=== PATIENT | female | born 1985 | race Caucasian/White ===

== ENCOUNTER 2020-03-01 13:33 | Outpatient (REF) | payer MEDICAID, SELFPAY ==
[2020-03-01 15:00] LABS: MANUAL DIFF FLAG NO
[2020-03-01 15:04] LABS: Basophils Percent Auto 0.3 % (0-2); Eosinophils Absolute Auto 0.1 X10*3/uL (0.0-0.4); Eosinophils Percent Auto 4.3 % (0-4); Hematocrit 38.3 % (37-47); Hemoglobin 12.6 g/dl (12.0-16.0); Lymphocytes Absolute Auto 1.6 X10*3/uL (1.2-4.9); Lymphocytes Percent Auto 53.8 % (20-40); Mean Corpuscular HGB Conc 32.9 g/dl (31.0-35.0); Mean Corpuscular Hemoglobin 29.9 pg (27.0-33.0); Mean Platelet Volume 12.4 fL (9.4-12.3); Monocytes Absolute Auto 0.2 X10*3/uL (0.1-1.2); Monocytes Percent Auto 7.3 % (2-11); Neutrophils Percent Auto 34.3 % (45-73); Platelet Count 117 X10*3/uL (160-400); Red Blood Count 4.21 X10*6/uL (4.20-5.50); Red Cell Distribution Width 13.2 % (11.0-16.0)
[2020-03-01 15:55] LABS: HCG Quantitative < 2 mIU/mL; TSH reflex Free T4 0.99 mIU/mL (0.32-4.0)
[2020-03-01 15:58] LABS: Erythrocyte Sedimentation Rate 14 MM/HR (0-20)
[2020-03-01 15:59] LABS: Alanine Aminotransferase 162 U/L (0-31); Albumin Level 3.8 g/dL (3.5-5.0); Alkaline Phosphatase 117 U/L (39-117); Anion Gap 12 (12-20); Aspartate Amino Transferase 187 U/L (5-31); Bilirubin Total 0.6 mg/dL (0.0-1.0); Blood Urea Nitrogen 7 mg/dL (9-16); C Reactive Protein 0.21 mg/dL (< or = 0.50); Calcium 8.6 mg/dL (8.4-10.2); Carbon Dioxide 24 mmol/L (22-29); Chloride 106 mmol/L (96-108); Estimated Glomerular Filt Rate > 60; Glucose Random 114 mg/dL (60-115); Potassium 4.3 mmol/l (3.3-5.1); Sodium 138 mmol/L (135-145); Total Protein 7.7 g/dL (6.5-8.0)
[2020-03-01 16:09] LABS: Lactate Dehydrogenase 192 U/L (122-220)
[2020-03-03 09:38] LABS: SARS COV2 IgG Negative (Negative)
[2020-03-04 08:04] LABS: HIV AB/AG Nonreactive (Nonreactive); HIV Num 1 0.06 S/CO (0.00-0.99)
== END 2020-03-01 13:34 | disposition home or self-care (01) ==
LOC: HO.LAB 13:33
PROVIDERS: PCP Family Medicine; Visit Provider Family Medicine
DX: R61 Generalized hyperhidrosis (principal); Z01.84 Encounter for antibody response examination
CPT/HCPCS: 36415; 80053; 83615; 84443; 84702; 85025; 85652; 86140; 86481; 86769; 87040; 87389

== ENCOUNTER → 2020-05-01 10:47 | Outpatient (BNVA) | payer MEDICAID, SELFPAY | PROVIDERS: PCP Family Medicine; Referring Provider Internal Medicine; Visit Provider Surgery | DX: K43.9 Ventral hernia without obstruction or gangrene (principal); B19.20 Unspecified viral hepatitis C without hepatic coma; F19.11 Other psychoactive substance abuse, in remission | CPT/HCPCS: 99212 ==

== ENCOUNTER 2020-05-14 08:41 | Day surgery (SDC) | payer MEDICAID, SELFPAY ==
[2020-05-08 13:30] VITALS: BMI 34.2
--- NOTE | 2020-05-13 11:08 | HO.ANESPROP2 ---
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 If so, by whom?: No Advance Directives Information Provided: No Recently lost weight without trying: No Meds Allergies Allergy/AdvReac Type Severity Reaction Status Date / Time No Known Allergies Allergy Verified 05/14/20 08:47 Home Medications Medication Instructions Recorded Confirmed Type clonazepam 1 mg tablet 1 mg PO TID 05/01/20 05/08/20 History gabapentin 800 mg tablet 800 mg PO TID 05/01/20 05/08/20 History methadone 10 mg/5 mL oral solution 60 mg PO DAILY ml 05/01/20 05/08/20 History sertraline 100 mg tablet 150 mg PO DAILY tab 05/01/20 05/08/20 History Exam Exam Date and Time: May 13, 2020 1108 Height,Weight and Vital Signs: Height 5 ft 2 in Weight 84.822 kg Pertinent Lab Results Pertinent Lab Results: Laboratory Tests 03/01/20 03/01/20 14:25 14:25 WBC 3.0 L Hgb 12.6 Hct 38.3 Plt Count 117 L Sodium 138 Potassium 4.3 Chloride 106 Carbon Dioxide 24 BUN 7 L Creatinine 0.75 Laboratory Tests 03/01/20 14:25 Total Bilirubin 0.6 AST 187 H ALT 162 H Alkaline Phosphatase 117 Assessment and Plan Assessment Anesthesia Assessment: Chart Reviewed Documented by User: Susy Patiño 05/14/20 10:17 PMF Past Medical History Medical History Anxiety and depression Hepatitis C History of intravenous drug abuse Lab test negative for COVID-19 virus Lab test positive for detection of COVID-19 virus Obesity Smoker Supraumbilical hernia Surgical History Surgical History History of section (~2006) History of umbilical hernia repair (~09/29/17) Social History Social History 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 If so, by whom?: No Advance Directives Information Provided: No Recently lost weight without trying: No Meds Allergies Allergy/AdvReac Type Severity Reaction Status Date / Time No Known Allergies Allergy Verified 05/14/20 08:47 Home Medications Medication Instructions Recorded Confirmed Type clonazepam 1 mg tablet 1 mg PO TID 05/01/20 05/08/20 History gabapentin 800 mg tablet 800 mg PO TID 05/01/20 05/08/20 History methadone 10 mg/5 mL oral solution 60 mg PO DAILY ml 05/01/20 05/08/20 History sertraline 100 mg tablet 150 mg PO DAILY tab 05/01/20 05/08/20 History Exam Airway Mallampati Class: II TM Dist: >3cm Neck ROM: Full Assessment and Plan Assessment Anesthesia Assessment: Anesthesia Plan Discussed, Smoking Cess. Discussed and Chart Reviewed Final Anesthetic Review NPO: Yes ASA Class: II Final Preanesthetic Review: No Changes in Pt Med Stat, Meds/Allgs Chart Reviewed, Consent Obtained/Reviewed and Anes Risks/Benef Reviewed Patient Risk: Intermediate Procedure Risk: Low Assessment/Block/Sedation in SS: Assess/Block/Sedation-SS Anesthetic Plan Anesthetic Plan: GA Disposition: Standard PACU
[2020-05-14 08:57] VITALS: BP 125/71; PULSE 75; RESP 16; TEMP 36.6; O2SAT 97
[2020-05-14] MEDS: Lactated Ringers 1,000 ML 100 ML IVCONT (09:16)
[2020-05-14] MEDS: ceFAZolin Sodium/Dextrose,Iso 2 GM/50 ML PIGGYBACK IV (09:16)
[2020-05-14 09:29] LABS: UPreg QC Valid YES; Urine Pregnancy NEGATIVE (NEGATIVE)
--- NOTE | 2020-05-14 09:49 | MHC.SHP ---
Pre-Procedural Eval Section B Chief Complaint: Supraumbilical Hernia Allergies: Allergies Allergy/AdvReac Type Severity Reaction Status Date / Time No Known Allergies Allergy Verified 05/14/20 08:47 Plan Patient has been examined and remains a candidate for the planned procedure
[2020-05-14 10:35] VITALS: BP 93/61; PULSE 67; RESP 16; TEMP 36.3; O2SAT 95
[2020-05-14 10:40] VITALS: BP 104/62; PULSE 68; RESP 16; O2SAT 95
[2020-05-14 10:45] VITALS: BP 102/61; PULSE 67; RESP 16; O2SAT 95
[2020-05-14 10:50] VITALS: BP 100/63; PULSE 74; RESP 16; O2SAT 94
[2020-05-14 11:05] VITALS: BP 106/64; PULSE 73; RESP 16; O2SAT 97
--- NOTE | 2020-05-14 11:09 | OP_ITS ---
SURGEON: Leander Leija MD INDICATIONS: The patient is a 34-year-old female with note of reducible supraumbilical mass. This had been bothering her. She was seen in the office. This appeared to be consistent with a supraumbilical hernia. Review of her history showed she had an umbilical hernia repair done in 2018, but a new hernia appeared to be separate from this. She understood the technique of repair with possible mesh placement. She was aware of the risks, benefits, and alternatives. PREOPERATIVE DIAGNOSIS: Supraumbilical hernia. POSTOPERATIVE DIAGNOSIS: Supraumbilical hernia. PROCEDURE PERFORMED: Repair of supraumbilical hernia. ESTIMATED BLOOD LOSS: COMPLICATIONS: ANESTHESIA: ASSISTANTS: Preeti Carty PA-C. SPECIMENS: DESCRIPTION OF PROCEDURE: The patient was brought to the operating room and placed supine on the table under general anesthesia via laryngeal mask airway. The area of the hernia was prepped and draped in usual sterile fashion. A surgical time-out was done. The patient received cefazolin 2 g IV preoperatively. I infiltrated the planned line of incision using lidocaine 1%. I made a short longitudinal incision using blade #15. This was carried down to full-thickness skin and subcutaneous fat using electrocautery. We proceeded to then expose the anterior fascia. We then proceeded to continue to dissect through the subcutaneous fat until I was able to see a hernia. I sharply dissected the hernia off the rest of the subcutaneous fat down to the fascial layer using Metzenbaum scissors as well as electrocautery. I was able to clearly define the hernia after this dissection. We were able to reduce the hernia completely. The fascial defect was about 0.75 cm in diameter. In view of the very small size of this hernia, i decided not to use the mesh. I closed this with a [id number] Maxon 0 stitch. Made sure that there were no bowel loops under the fascial defect on indirect examination during closure. There were no other palpable hernias in the area. I then reapposed the subcutaneous layer with Dexon 3-0 interrupted sutures. Skin closure was achieved with Dexon 4-0 subcuticular running stitch. Steri-Strips and dressings were applied. The incision was infiltrated with Marcaine 0.5% for postop analgesia. The procedure was then completed. The patient tolerated the procedure well. There were no complications noted. Initial and final counts of sponges and instruments were correct. Estimated blood loss was minimal. The area of incision had been infiltrated with Marcaine 0.5% for postop analgesia. The patient was then extubated and was transferred to recovery room with stable vital signs. MD WILLIE Lopez/LALO / [id number] MTDD
--- NOTE | 2020-05-14 11:57 | HO.POSTANES ---
Post Anesthesia Evaluation Post Anesthesia Evaluation Vital Signs: Vital Signs Temp Pulse Resp BP Pulse Ox 05/14/20 11:05 97.3 F 73 16 106/64 97 05/14/20 10:50 74 16 100/63 94 05/14/20 10:45 67 16 102/61 95 05/14/20 10:40 68 16 104/62 95 05/14/20 10:35 97.3 F 67 16 93/61 95 05/14/20 08:57 97.8 F 75 16 125/71 97 Anesthesia: General LMA Mental Status: Awake Pain Control: Satisfactory Nausea/Vomiting: None Hydration: Adequate Anesthesia-Related Issues: No Anes. Related Issues
== END 2020-05-14 11:44 | disposition home or self-care (01) ==
PROVIDERS: Nurse Practitioner; PCP Family Medicine; Visit Provider Surgery
PROC: (CPT 49560; principal; 2020-05-14 10:00)
DX: K43.9 Ventral hernia without obstruction or gangrene (principal)
CPT/HCPCS: 49560; 81025; J0690; J1100; J2250; J2405; J3010

== ENCOUNTER 2020-08-14 16:05 | Outpatient (REF) | payer MEDICAID, SELFPAY ==
--- NOTE | ~2020-08-14 | XR_ITS ---
EXAMINATION: XR LUMBOSACRAL SPINE WITH OBLIQUES CLINICAL INFORMATION: Lumbago with sciatica. Right side. COMPARISON: None TECHNIQUE: AP, both oblique, and lateral views of the lumbar spine. Lateral view of the lumbosacral junction. FINDINGS: There is normal lumbar lordosis. The vertebral heights, alignment and disc heights are normal. There is no pars defect on oblique views. There is no lytic process. There is moderate stool seen in the colon without distention. The soft tissues are normal. XR/XR lumbar spine 4V min IMPRESSION: Unremarkable lumbar spine exam.
== END 2020-08-14 16:06 | disposition home or self-care (01) ==
LOC: HO.XRAY 16:05
PROVIDERS: PCP Internal Medicine; Visit Provider Family Medicine
DX: M54.41 Lumbago with sciatica, right side (principal)
CPT/HCPCS: 72110

== ENCOUNTER → 2020-11-04 12:24 | Outpatient (REF) | payer MEDICAID, SELFPAY ==
--- NOTE | 2020-11-04 12:34 | ECG_ITS ---
Test Reason : CHECK QT Blood Pressure : / mmHG Vent. Rate : 061 BPM Atrial Rate : 061 BPM P-R Int : 148 ms QRS Dur : 082 ms QT Int : 458 ms P-R-T Axes : 037 039 022 degrees QTc Int : 461 ms Normal sinus rhythm Nonspecific T wave abnormality Prolonged QT Abnormal ECG When compared with ECG of 07-JAN-2019 13:49, T wave inversion less evident in Anterolateral leads Referred By: Ara Haile Electronically Signed By:ALBERT RODRIGUEZ MD
== END ==
LOC: HO.CARD 12:24
PROVIDERS: PCP Internal Medicine; Visit Provider Family Medicine
DX: R94.31 Abnormal electrocardiogram [ECG] [EKG] (principal); Z79.891 Long term (current) use of opiate analgesic
CPT/HCPCS: 93005

== ENCOUNTER 2021-02-14 08:16 | Outpatient (REF) | payer OTHER, MEDICAID, SELFPAY ==
--- NOTE | ~2021-02-14 | MR_ITS ---
MR CERVICAL SPINE WITHOUT CONTRAST CLINICAL INFORMATION: Muscle spasm. COMPARISON: Cervical spine radiographs 12/06/2019. TECHNIQUE: MRI of the cervical spine was obtained using routine sequences without contrast. FINDINGS: Cervical alignment is normal. The vertebral body heights are maintained. The disc volumes are preserved. There is no bone marrow edema. There are no acute fractures. Craniocervical junction is unremarkable. Cervical arterial flow voids are maintained. There are no significant extraspinal soft tissue findings. Partially imaged intracranial compartment is unremarkable. C2-C3: Disc contour is normal. No central canal stenosis and no foraminal stenosis. C3-C4: Slight annular disc bulge. No central canal stenosis and no foraminal stenosis. C4-C5: Slight annular disc bulge. No central canal stenosis and no foraminal stenosis. C5-C6: Shallow central disc protrusion without central canal stenosis. No foraminal stenosis. C6-C7: Disc contour is normal. No central canal stenosis and no foraminal stenosis. C7-T1: Disc contour is normal. No central canal stenosis and no foraminal stenosis. MR/MR cervical spine wo con IMPRESSION: Mild cervical spondylosis. No severe central canal stenosis and no foraminal stenosis within the cervical spine.
== END 2021-02-14 08:17 | disposition home or self-care (01) ==
LOC: HO.MRI 08:16
PROVIDERS: Visit Provider Internal Medicine
DX: M62.838 Other muscle spasm (principal)
CPT/HCPCS: 72141

== ENCOUNTER 2021-03-27 07:23 | Outpatient (REF) | payer MEDICAID, SELFPAY ==
--- NOTE | ~2021-03-27 | MR_ITS ---
EXAMINATION: MR LUMBAR SPINE WITHOUT CONTRAST CLINICAL INFORMATION: Low back pain. Left-sided sciatica. COMPARISON: Lumbar spine radiographs 08/14/2020. TECHNIQUE: MRI of the lumbar spine was obtained using routine sequences without contrast. FINDINGS: Alignment is normal. Vertebral body heights are preserved. There is disc desiccation at L5-S1 without substantial loss of intervertebral disc height. The tip of the conus medullaris is located at T12-L1. No mass effect on the conus. Visualized distal cord signal intensity is normal. At L1-L2, L2-L3, L3-L4, and L4-L5 the annular contours are normal. No canal or neuroforaminal compromise at these 4 levels. At L5-S1 there is a right subarticular protrusion causing displacement and possible compression of the right traversing S1 nerve roots. No foraminal nerve root compression. Limited visualization of the retroperitoneal anatomy reveals no abnormal finding. Psoas and paraspinal muscle groups are symmetric. MR/MR lumbar spine wo con IMPRESSION: There is a right subarticular protrusion at L5-S1 causing displacement and possible compression of the right traversing S1 nerve roots. Otherwise no substantial mass effect on the traversing or foraminal nerve roots within the lumbar spine. No canal stenosis.
== END 2021-03-27 07:24 | disposition home or self-care (01) ==
LOC: HO.MRI 07:23
PROVIDERS: Visit Provider Internal Medicine
DX: M54.42 Lumbago with sciatica, left side (principal)
CPT/HCPCS: 72148

== ENCOUNTER 2021-07-02 10:09 | Emergency (ER) | payer MEDICAID, SELFPAY ==
[2021-07-02 10:31] VITALS: BP 115/72; PULSE 80; RESP 18; TEMP 36.5; O2SAT 96; BMI 29.2
--- NOTE | 2021-07-02 11:35 | ED_ITS ---
HPI - General Adult General Chief complaint: General Medical Stated complaint: Vomiting Time Seen by Provider: 07/02/21 10:53 Source: patient Mode of arrival: ambulatory Limitations: no limitations History of Present Illness HPI narrative: 36-year-old female who presents emergency department for evaluation of rhino rrhea, body aches, headache, fatigue, shortness of breath, vomiting and diarrhea x3 days. Patient states that over the past 3 days she has had vomiting 3 times a day with no blood in the emesis, diarrhea every 1-2 hours with no blood in the stool . She states that she has had no appetite she is feeling very weak and fatigued. She states she has felt hot and cold but did not have a documented te mperature at home. She has had body aches and shortness of breath. She denied cough or chest pain. She states that she has a constant, throbbing headache located behind her eyes, the headache is 6/10 at its worst. The patient states that she also started her menstrual period 3 days prior pain . She states that she was due for her menstrual. At this time but the menstrual flow is unusually severe for her. She states that she is soaking through 1 pad per hour normally she goes through 3-4 pads a day. The patient states that she was COVID positive when she was 21 months prior. She has not been vaccinated for COVID-19. Related Data Home Medications Medication Instructions Recorded Confirmed clonazepam 1 mg tablet 1 mg PO TID 05/01/20 05/08/20 gabapentin 800 mg tablet 800 mg PO TID 05/01/20 05/08/20 methadone 10 mg/5 mL oral solution 60 mg PO DAILY ml 05/01/20 05/08/20 sertraline 100 mg tablet 150 mg PO DAILY tab 05/01/20 05/08/20 Previous Rx's Medication Instructions Recorded ibuprofen 600 mg tablet 600 mg PO Q6H PRN #30 tab 05/14/20 oxycodone 5 mg tablet 5 mg PO Q4-6H PRN #30 tab 05/14/20 ondansetron 4 mg disintegrating 4 mg PO Q6-8H PRN #14 tab 07/02/21 tablet Allergies Allergy/AdvReac Type Severity Reaction Status Date / Time No Known Allergies Allergy Verified 05/14/20 08:47 Review of Systems Verdana 4l Review of Systems: Yes all other systems are reviewed and Verdana 4d are negative [facility] Past Medical History [facility] Narrative: Social history: The patient smokes 6 cigarettes per day for 25 years. She denies alcohol use. She states she occasionally smokes marijuana and she denies other drug use. 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: Yes (children-age 2 yrs / age 7 months) Do you presently have visiting nurse or other home services: No Alcohol intake: unknown Patient Tobacco Use Status: Current everyday Tobacco user Years Smoked: 20 Smoked in Last 30 Days: Yes Substance Use Type: Former Substance User Advance Directives: No Advance Directives Information Provided: No Physical Exam Verdana 4l Vital Signs: Verdana 4d Verdana 4d Vital Signs: Verdana 4d Verdana 4Bd Last Vital Signs Verdana 4d Tower Switch Operator New 4d Tower Switch Operator New 4d Temp 97.7 F 07/02/21 10:31 Tower Switch Operator New 4d Pulse 62 07/02/21 13:03 Tower Switch Operator New 4d Resp 18 07/02/21 13:03 BP 121/82 07/02/21 13:03 Pulse Ox 96 07/02/21 13:03 BMI result Body Mass Index 29.2 Const: General: cooperative and no acute distress Orientation/consciousness: oriented to person and oriented to place Limitations: no limitations HENMT: Head: Yes normal to inspection, Yes normocephalic and Yes atraumatic Ears: external ears normal General nose exam: Normal external nose present Face and sinus: Yes normal facial exam Mouth: Normal oral and palatal mucosa present Throat: Yes posterior oropharynx normal Eyes: General: appearance normal, both eyes and all related structures Pupils: Equal, round and reactive pupils present Neck: Neck: Yes normal visual inspection, Yes no lymphadenopathy, Yes trachea midline and Yes supple Chest: Chest palpation & inspection: normal inspection of the chest and normal palpation of entire chest wall Resp: Effort & Inspection: normal respiratory effort and able to speak in complete sentences Auscultation: clear to auscultation bilaterally Cardio: Rate: regular rate Rhythm: regular rhythm Heart sounds: S1 normal heart sound present, S2 normal heart sound present and no murmurs GI: Inspection: Yes normal to inspection Palpation (GI): Soft to palpation, Tenderness to palpation present (GI) (Moderate diffuse abdominal pain) and no guarding Auscultation: normal bowel sounds : General: Yes no CVA tenderness Back/Spine/Pelvis: Back: no CVA tenderness Skin: General skin exam: no rashes or lesions noted Neuro: General: oriented to person and oriented to place Cranial nerves: Yes CN's II-XII intact bilaterally and Yes Equal, round and reactive pupils present Cognition (Neuro): normal cognition Motor exam (neuro): 5/5 motor strength present throughout Extrem: General: Yes normal to inspection Psych: Appearance: grossly normal Speech and movement: Normal speech and movement present Affect: normal affect Attitude: cooperative Thought process: Normal thought process present Thought content: Normal thought content present Course Course Course Narrative: 36-year-old female who presents with 3 days of illness with symptoms including rhinorrhea, vomiting, diarrhea, subjective fever, body aches, headache, shortness of breath. Patient also started her menstrual period 3 days prior. The patient's initial vital signs were normal. Physical examination did reveal diffuse abdominal tenderness otherwise was unremarkable. Patient did have COVID-19 21 months prior but has not been vaccinated. I ordered the following tests on the patient: COVID-19/influenza/RSV, CBC, CMP, lipase, urinalysis, serum beta HCG. Patient will be treated with Reglan 10 mg IV, Benadryl 50 mg IV and Toradol 15 mg IV. She was also ordered to get normal saline x1 L 1527: Patient's laboratory evaluation revealed a low WBC of 3900, anemia with an H&H of 12 and 35.4 and a low platelet count of a 395107, these are chronic. CMP was normal except for slight elevation in her AST and ALT of 37 and 43, this is improved from previous values. Quantitative beta-hCG was negative. COVID- 19, influenza and RSV were negative. The patient did not getting relief of her headache with the above treatment but she did get relief with Imitrex 6 mg subcutaneously. The patient is feeling significantly better will be discharged home. She will be started on Zofran for her nausea and vomiting. She was advised to take Tylenol and ibuprofen as well. Medical Decision Making Lab Data Result diagrams: 07/02/21 12:30 07/02/21 12:30 Labs: Lab Results 07/02/21 07/02/21 07/02/21 Range/Units 12:30 12:30 14:08 WBC 3.9 L (4.8-10.8) X10*3/uL RBC 4.09 L (4.20-5.50) X10*6/uL Hgb 12.0 (12.0-16.0) g/dl Hct 35.4 L (37.0-47.0) % MCV 86.6 (80.0-98.0) fL MCH 29.3 (27.0-33.0) pg MCHC 33.9 (31.0-35.0) g/dl RDW 13.3 (11.0-16.0) % Plt Count 104 L (160-400) X10*3/uL MPV 11.7 (9.4-12.3) fL Immature Gran % (Auto) 0.0 (0.0-0.4) % Neut % (Auto) 36.8 L (45-73) % Lymph % (Auto) 51.8 H (20-40) % [place] % (Auto) 7.9 (2-11) % Eos % (Auto) 3.0 (0-4) % Baso % (Auto) 0.5 (0-2) % Lymph # (Auto) 2.0 (1.2-4.9) X10*3/uL [place] # (Auto) 0.3 (0.1-1.2) X10*3/uL Eos # (Auto) 0.1 (0.0-0.4) X10*3/uL Baso # (Auto) 0.0 (0.0-0.2) X10*3/uL Abs Immat Gran (auto) 0.00 (0.00-0.03) X10*3/uL Absolute Neuts (auto) 1.5 L (2.0-8.3) x10*3/uL Absolute Nucleated RBC 0.000 (0.0-0.012) X10*3/uL Nucleated RBC % (auto) 0.0 (0.0-0.2) /100WBC Sodium 141 (135-145) mmol/L Potassium 4.0 (3.3-5.1) mmol/L Chloride 107 (96-108) mmol/L Carbon Dioxide 29 (22-29) mmol/L Anion Gap 9 L (12-20) BUN 9 (9-16) mg/dL Creatinine 0.70 (0.5-1.4) mg/dL Estim Creat Clear Calc 105.6 Estimated GFR > 60 Random Glucose 93 (60-115) mg/dL Calcium 8.9 (8.4-10.2) mg/dL Total Bilirubin 0.3 (0.0-1.0) mg/dL AST 37 H D (5-31) U/L ALT 43 H (0-31) U/L Alkaline Phosphatase 95 (39-117) U/L Total Protein 7.3 (6.5-8.0) g/dL Albumin 4.1 (3.5-5.0) g/dL Lipase 63 (8-78) U/L Beta HCG, Quant < 2 mIU/mL Influenza Type A (PCR) NEGATIVE (Negative) Influenza Type B (PCR) NEGATIVE (Negative) RSV RNA Qual (PCR) NEGATIVE (Negative) SARS-CoV-2 RNA (RT-PCR) NEGATIVE (Negative) Discharge Plan Discharge Clinical Impression: Viral syndrome, Acute dehydration Headache, migraine Qualifiers: Migraine type: unspecified Status migrainosus presence: without status migrainosus Intractability: not intractable Qualified Code(s): G43.909 - Migraine, unspecified, not intractable, without status migrainosus Patient Disposition: Home, Self-Care Instructions: Viral Syndrome (ED) Prescriptions: New ondansetron 4 mg tablet,disintegrating 4 mg PO Q6-8H PRN (Reason: nausea and vomiting) Qty: 14 0RF No Action ibuprofen 600 mg tablet 600 mg PO Q6H PRN (Reason: pain) Qty: 30 0RF oxycodone 5 mg tablet 5 mg PO Q4-6H PRN (Reason: pain) Qty: 30 0RF clonazepam 1 mg tablet 1 mg PO TID 0RF gabapentin 800 mg tablet 800 mg PO TID 0RF sertraline 100 mg tablet 150 mg PO DAILY 0RF methadone 10 mg/5 mL solution 60 mg PO DAILY 0RF
[2021-07-02 12:40] LABS: MANUAL DIFF FLAG NO
[2021-07-02 12:46] LABS: Basophils Percent Auto 0.5 % (0-2); Eosinophils Absolute Auto 0.1 X10*3/uL (0.0-0.4); Hematocrit 35.4 % (37.0-47.0); Lymphocytes Percent Auto 51.8 % (20-40); Mean Corpuscular HGB Conc 33.9 g/dl (31.0-35.0); Mean Corpuscular Hemoglobin 29.3 pg (27.0-33.0); Mean Corpuscular Volume 86.6 fL (80.0-98.0); Mean Platelet Volume 11.7 fL (9.4-12.3); Monocytes Absolute Auto 0.3 X10*3/uL (0.1-1.2); Monocytes Percent Auto 7.9 % (2-11); Neutrophils Absolute Auto 1.5 x10*3/uL (2.0-8.3); Neutrophils Percent Auto 36.8 % (45-73); Platelet Count 104 X10*3/uL (160-400); Red Blood Count 4.09 X10*6/uL (4.20-5.50); Red Cell Distribution Width 13.3 % (11.0-16.0); White Blood Count 3.9 X10*3/uL (4.8-10.8)
--- NOTE | 2021-07-02 12:58 | PC.NURSE ---
Pt comes in with c/o N/V/D x 3 days and now made worse by menses. States she is soaking through 1 pad per hour. Denies any recent pregnancies, pt's daughter has same N/V/D at this time as well. Pain 9/10 to head, states she has had decreased PO intake d/t the nausea. IV established, medicated by NISHA RUANO for meds, call [facility] within reach. Will continue to monitor.
[2021-07-02] MEDS: Ketorolac Tromethamine 30 MG/ML VIAL 15 MG IVPUSH (13:00)
[2021-07-02 13:03] VITALS: BP 121/82; PULSE 62; RESP 18; O2SAT 96
[2021-07-02 13:13] LABS: HCG Quantitative < 2 mIU/mL
[2021-07-02 13:17] LABS: Alanine Aminotransferase 43 U/L (0-31); Albumin Level 4.1 g/dL (3.5-5.0); Alkaline Phosphatase 95 U/L (39-117); Anion Gap 9 (12-20); Aspartate Amino Transferase 37 U/L (5-31); Bilirubin Total 0.3 mg/dL (0.0-1.0); Blood Urea Nitrogen 9 mg/dL (9-16); Calcium 8.9 mg/dL (8.4-10.2); Carbon Dioxide 29 mmol/L (22-29); Chloride 107 mmol/L (96-108); Creatinine Clr Calc Pharmacy 105.6; Estimated Glomerular Filt Rate > 60; Glucose Random 93 mg/dL (60-115); Lipase 63 U/L (8-78); Sodium 141 mmol/L (135-145); Total Protein 7.3 g/dL (6.5-8.0)
[2021-07-02] MEDS: Metoclopramide HCl 10 MG/2 ML VIAL IVPUSH (13:25)
[2021-07-02] MEDS: diphenhydrAMINE HCL 50 MG/ML VIAL IVPUSH (13:26)
[2021-07-02] MEDS: 0.9 % Sodium Chloride 1,000 ML 999 ML IV (13:26)
[2021-07-02] MEDS: SUMAtriptan succinate 6 MG/0.5 ML VIAL SUBCUT (13:37)
[2021-07-02 14:50] LABS: Influenza A PCR NEGATIVE (Negative); Influenza B PCR NEGATIVE (Negative); Resp Syncy Virus RNA Qual PCR NEGATIVE (Negative); SARS COV2 PCR INHOUSE NEGATIVE (Negative)
[2021-07-02 15:39] LABS: Appearance Urine HAZY; Color Urine YELLOW; Glucose Urine UA NEG (NEG); Leukocyte Esterase Urine NEG (NEG); Nitrite Urine NEG (NEG); UACC Culture Trigger NO; Urine Blood 3+ (NEG); Urine Ketones NEG (NEG); Urine Protein NEG (NEG-TRACE)
[2021-07-02 15:47] LABS: Bacteria Urine 1+ /LPF; WBC Urine 0 /HPF (0-4)
--- NOTE | 2021-07-02 16:02 | PC.NURSE ---
patient left without discharge papers
== END 2021-07-02 16:02 | disposition home or self-care (01) ==
PROVIDERS: Emergency Provider Emergency Medicine Emergency Medical Services; PCP Internal Medicine
DX: B34.9 Viral infection, unspecified (principal); G43.909 Migraine, unspecified, not intractable, without status migrainosus; E86.0 Dehydration; F17.210 Nicotine dependence, cigarettes, uncomplicated; Z20.822 Contact with and (suspected) exposure to COVID-19; Z71.6 Tobacco abuse counseling; Z79.899 Other long term (current) drug therapy
CPT/HCPCS: 0241U; 36415; 80053; 81001; 83690; 84702; 85025; 96361; 96372; 96374; 96375; 99284; J1200; J1885; J2765; J3030

== ENCOUNTER 2021-09-09 11:15 | Emergency (ER) | payer MEDICAID, SELFPAY ==
--- NOTE | ~2021-09-09 | XR_ITS ---
EXAMINATION: XR CHEST CLINICAL INFORMATION: Dyspnea COMPARISON: None TECHNIQUE: Frontal view of the chest was obtained. FINDINGS: The lungs are clear. The vascularity is normal. There is no airspace consolidation or groundglass opacity or effusion. The costophrenic sulci are clear. The heart is normal in size. The hilar and mediastinal contours are normal. There is mild levocurvature upper thoracic spine. XR/XR chest 1V IMPRESSION: Unremarkable examination.
--- NOTE | 2021-09-09 11:34 | ECG_ITS ---
Test Reason : cp Blood Pressure : / mmHG Vent. Rate : 079 BPM Atrial Rate : 079 BPM P-R Int : 142 ms QRS Dur : 076 ms QT Int : 386 ms P-R-T Axes : 038 024 003 degrees QTc Int : 442 ms Normal sinus rhythm Nonspecific T wave abnormality Abnormal ECG When compared with ECG of 04-NOV-2020 12:40, No significant change was found Referred By: Generic ED Physician Electronically Signed By:Eduardo Mcginnis
[2021-09-09 11:35] VITALS: BP 125/64; PULSE 77; RESP 19; TEMP 36.9; O2SAT 98; BMI 32.8
[2021-09-09 12:00] LABS: MANUAL DIFF FLAG NO
[2021-09-09 12:09] LABS: Basophils Percent Auto 0.3 % (0-2); Eosinophils Absolute Auto 0.3 X10*3/uL (0.0-0.4); Eosinophils Percent Auto 9.6 % (0-4); Hemoglobin 11.6 g/dl (12.0-16.0); Lymphocytes Absolute Auto 1.2 X10*3/uL (1.2-4.9); Lymphocytes Percent Auto 41.9 % (20-40); Mean Corpuscular HGB Conc 32.2 g/dl (31.0-35.0); Mean Corpuscular Hemoglobin 28.1 pg (27.0-33.0); Mean Corpuscular Volume 87.2 fL (80.0-98.0); Monocytes Absolute Auto 0.3 X10*3/uL (0.1-1.2); Monocytes Percent Auto 10.3 % (2-11); Neutrophils Absolute Auto 1.1 x10*3/uL (2.0-8.3); Neutrophils Percent Auto 37.9 % (45-73); Red Blood Count 4.13 X10*6/uL (4.20-5.50); Red Cell Distribution Width 13.3 % (11.0-16.0); White Blood Count 2.9 X10*3/uL (4.8-10.8)
[2021-09-09 12:16] LABS: Anion Gap 11 (12-20); Blood Urea Nitrogen 8 mg/dL (9-16); Calcium 9.3 mg/dL (8.4-10.2); Carbon Dioxide 29 mmol/L (22-29); Chloride 105 mmol/L (96-108); Creatinine Clr Calc Pharmacy 118.7; Estimated Glomerular Filt Rate > 60; Glucose Random 101 mg/dL (60-115); Potassium 4.7 mmol/L (3.3-5.1); Sodium 140 mmol/L (135-145)
[2021-09-09 12:24] LABS: B Type Natriuretic Peptide 21 pg/mL (<100); Troponin-I High Sensitivity < 3.5 ng/L (<3.5-17.0)
[2021-09-09 12:34] LABS: Mean Platelet Volume 11.5 fL (9.4-12.3); Platelet Count 89 X10*3/uL (160-400)
--- NOTE | 2021-09-09 13:26 | ED_ITS ---
HPI - General Adult General Chief complaint: Dyspnea Stated complaint: sob, cough Time Seen by Provider: 09/09/21 13:21 Source: patient Mode of arrival: ambulatory Limitations: no limitations History of Present Illness HPI narrative: 36-year-old female with a past medical history of IV drug abuse, hepatitis-C, anxiety and depression, and tobacco use, presents for 3 days of cough, headache, body aches, nausea, and fever at home. Her chest hurts from coughing. Patient is not vaccinated for COVID. She used her son's inhaler and his nebulizer which helped her little bit with the coughing. It is hard for her to drink fluids due to her nausea. No vomiting or diarrhea. No UTI symptoms. Related Data Home Medications Medication Instructions Recorded Confirmed clonazepam 1 mg tablet 1 mg PO TID 05/01/20 05/08/20 gabapentin 800 mg tablet 800 mg PO TID 05/01/20 05/08/20 methadone 10 mg/5 mL oral solution 60 mg PO DAILY ml 05/01/20 05/08/20 sertraline 100 mg tablet 150 mg PO DAILY tab 05/01/20 05/08/20 Previous Rx's Medication Instructions Recorded ibuprofen 600 mg tablet 600 mg PO Q6H PRN #30 tab 05/14/20 oxycodone 5 mg tablet 5 mg PO Q4-6H PRN #30 tab 05/14/20 ondansetron 4 mg disintegrating 4 mg PO Q6-8H PRN #14 tab 07/02/21 tablet albuterol sulfate 90 mcg/actuation 2 puff INHALATION Q4-6H PRN #6.7 g 09/09/21 aerosol inhaler ondansetron 4 mg disintegrating 4 mg PO Q8H #3 tab 09/09/21 tablet prednisone 20 mg tablet 40 mg PO DAILY 5 Days #10 tab 09/09/21 Allergies Allergy/AdvReac Type Severity Reaction Status Date / Time No Known Allergies Allergy Verified 09/09/21 11:37 Review of Systems Constitutional: Constitutional: Reports body ache(s), Denies chills, Reports fatigue, Reports fever(s), Reports headache(s), Reports malaise and Denies weakness Eyes: Eyes: Denies diplopia ENT: Denies vertigo, Denies dizziness, Denies otalgia, Reports headache(s), Denies mouth pain, Denies post nasal drip, Denies sinus pain, Denies sinus pressure, Denies sore throat and Denies throat swelling Cardiovascular: Cardiovascular: Denies chest pain, Denies syncope, Denies leg edema, Denies lightheadedness, Denies Loss of Consciousness, Denies palpitations and Denies dyspnea Respiratory: Respiratory: Denies chest congestion, Reports cough and Denies dyspnea Gastrointestinal: Gastrointestinal: Denies abdominal pain, Denies hematochezia, Denies constipation, Denies diarrhea, Reports nausea and Denies vomiting Musculoskeletal: Musculoskeletal: Reports myalgias Neurologic: Denies confusion, Denies vertigo, Denies dizziness, Denies syncope, Reports headache(s) and Denies weakness Psychiatric: Psychiatric: Denies anxiety, Denies confusion and Denies depr ession Endocrine: Endocrine: Reports fatigue and Denies palpitations Allergic/Immunologic: Allergic/Immunologic: Denies throat swelling PMFSH Past Medical History Medical History Anxiety and depression Hepatitis C History of intravenous drug abuse Lab test negative for COVID-19 virus Lab test positive for detection of COVID-19 virus Obesity Smoker Supraumbilical hernia Surgical History History of section (~2006) History of umbilical hernia repair (~09/29/17) Social History Social History 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 at home: Yes (children-age 2 yrs / age 7 months) Do you presently have visiting nurse or other home services: No Alcohol intake: unknown Patient Tobacco Use Status: Current everyday Tobacco user Years Smoked: 20 Substance Use Type: Former Substance User Advance Directives: No Advance Directives Information Provided: Yes Physical Exam ED Vital Signs: Vital Signs - 24 hr 09/09/21 11:35 09/09/21 14:10 Temperature 98.4 F 99.0 F Pulse Rate 77 89 Respiratory Rate 19 18 Blood Pressure 125/64 Pulse Oximetry 98 99 BMI result Body Mass Index 32.8 Const General: alert and awake; No confusion Nutritional Appearance: obese Orientation/consciousness: patient oriented x3 and No confusion Limitations: no limitations HENMT Head: Yes normal to inspection and Yes No palpable skull fracture present Ears: hearing grossly normal bilaterally and TM's normal bilaterally General nose exam: Normal external nose present Face and sinus: Yes normal facial exam Mouth: Normal oral and palatal mucosa present and moist mucous membranes Throat: Yes postnasal drainage Eyes Conjunctivae: conjunctivae normal Sclerae: sclerae normal Pupils: Equal, round and reactive pupils present EOM: EOMs intact bilaterally Neck Neck: Yes normal visual inspection, Yes full ROM, Yes no lymphadenopathy, Yes no meningeal signs, Yes trachea midline and Yes supple Resp Effort & Inspection: normal respiratory effort and able to speak in complete sentences Auscultation: wheezes scattered wheezes and throughout and diminished lung sounds Cardio Rate: regular rate Rhythm: regular rhythm GI Inspection: Yes Abdominal panniculus present and Yes obesity Palpation (GI): Soft to palpation, nontender, no guarding and not rigid Skin General skin exam: no rashes or lesions noted Neuro General: patient oriented x3, no meningeal signs and No confusion Cranial nerves: Yes Equal, round and reactive pupils present Extrem General: Yes normal to inspection, Yes full ROM and Yes capillary refill normal Course Course Course Narrative: 36-year-old female presents for upper respiratory symptoms of cough, shortness of breath, headache, body aches, nausea, and fever at home. EKG and troponin are normal, no elevated BNP, chest x-ray is normal. Labs are remarkable for a leukopenia of 2.9, and a thrombocytopenia of 89. On exam, patient's lungs have diminished breath sounds and are wheezy on auscultation, after albuterol inhaler, patient is still Wheezy. Treated patient's headache with Reglan, Toradol, Benadryl, with significant improvement Will treat with Zofran, albuterol inhaler, prednisone, ketorolac for headache. Counseled patient to follow-up with their primary care provider for low platelets. Medical Decision Making Lab Data Result diagrams: 09/09/21 11:52 09/09/21 11:52 Labs: Lab Results 09/09/21 09/09/21 09/09/21 Range/Units 11:52 11:52 11:52 WBC 2.9 L (4.8-10.8) X10*3/uL RBC 4.13 L (4.20-5.50) X10*6/uL Hgb 11.6 L (12.0-16.0) g/dl Hct 36.0 L (37.0-47.0) % MCV 87.2 (80.0-98.0) fL MCH 28.1 (27.0-33.0) pg MCHC 32.2 (31.0-35.0) g/dl RDW 13.3 (11.0-16.0) % Plt Count 89 L (160-400) X10*3/uL MPV 11.5 (9.4-12.3) fL Immature Gran % (Auto) 0.0 (0.0-0.4) % Neut % (Auto) 37.9 L (45-73) % Lymph % (Auto) 41.9 H (20-40) % [place] % (Auto) 10.3 (2-11) % Eos % (Auto) 9.6 H (0-4) % Baso % (Auto) 0.3 (0-2) % Lymph # (Auto) 1.2 (1.2-4.9) X10*3/uL [place] # (Auto) 0.3 (0.1-1.2) X10*3/uL Eos # (Auto) 0.3 (0.0-0.4) X10*3/uL Baso # (Auto) 0.0 (0.0-0.2) X10*3/uL Abs Immat Gran (auto) 0.00 (0.00-0.03) X10*3/uL Absolute Neuts (auto) 1.1 L (2.0-8.3) x10*3/uL Absolute Nucleated RBC 0.000 (0.0-0.012) X10*3/uL Nucleated RBC % (auto) 0.0 (0.0-0.2) /100WBC Sodium 140 (135-145) mmol/L Potassium 4.7 (3.3-5.1) mmol/L Chloride 105 (96-108) mmol/L Carbon Dioxide 29 (22-29) mmol/L Anion Gap 11 L (12-20) BUN 8 L (9-16) mg/dL Creatinine 0.66 (0.5-1.4) mg/dL Estim Creat Clear Calc 118.7 Estimated GFR > 60 Random Glucose 101 (60-115) mg/dL Calcium 9.3 (8.4-10.2) mg/dL Troponin I High Sens < 3.5 (<3.5-17.0) ng/L B-Natriuretic Peptide 21 (<100) pg/mL Urine Color Urine Appearance Urine pH (5.0-8.0) Ur Specific [place] (1.005-1.025) Urine Protein (NEG-TRACE) MG/DL Urine Glucose (UA) (NEG) MG/DL Urine Ketones (NEG) MG/DL Urine Blood (NEG) Urine Nitrite (NEG) Ur Leukocyte Esterase (NEG) Urine Test (NEGATIVE) COVID-19 (KAMRYN) (Negative) COVID-19 Clin Com Influenza Type A (NICOLASA) (Negative) Influenza Type B (NICOLASA) (Negative) Influenza A & B Note 09/09/21 09/09/21 09/09/21 Range/Units 13:31 13:31 13:31 WBC (4.8-10.8) X10*3/uL RBC (4.20-5.50) X10*6/uL Hgb (12.0-16.0) g/dl Hct (37.0-47.0) % MCV (80.0-98.0) fL MCH (27.0-33.0) pg MCHC (31.0-35.0) g/dl RDW (11.0-16.0) % Plt Count (160-400) X10*3/uL MPV (9.4-12.3) fL Immature Gran % (Auto) (0.0-0.4) % Neut % (Auto) (45-73) % Lymph % (Auto) (20-40) % [place] % (Auto) (2-11) % Eos % (Auto) (0-4) % Baso % (Auto) (0-2) % Lymph # (Auto) (1.2-4.9) X10*3/uL [place] # (Auto) (0.1-1.2) X10*3/uL Eos # (Auto) (0.0-0.4) X10*3/uL Baso # (Auto) (0.0-0.2) X10*3/uL Abs Immat Gran (auto) (0.00-0.03) X10*3/uL Absolute Neuts (auto) (2.0-8.3) x10*3/uL Absolute Nucleated RBC (0.0-0.012) X10*3/uL Nucleated RBC % (auto) (0.0-0.2) /100WBC Sodium (135-145) mmol/L Potassium (3.3-5.1) mmol/L Chloride (96-108) mmol/L Carbon Dioxide (22-29) mmol/L Anion Gap (12-20) BUN (9-16) mg/dL Creatinine (0.5-1.4) mg/dL Estim Creat Clear Calc Estimated GFR Random Glucose (60-115) mg/dL Calcium (8.4-10.2) mg/dL Troponin I High Sens (<3.5-17.0) ng/L B-Natriuretic Peptide (<100) pg/mL Urine Color Urine Appearance Urine pH (5.0-8.0) Ur Specific [place] (1.005-1.025) Urine Protein (NEG-TRACE) MG/DL Urine Glucose (UA) (NEG) MG/DL Urine Ketones (NEG) MG/DL Urine Blood (NEG) Urine Nitrite (NEG) Ur Leukocyte Esterase (NEG) Urine Test NEGATIVE (NEGATIVE) COVID-19 (KAMRYN) Negative (Negative) COVID-19 Clin Com See Note Influenza Type A (NICOLASA) Negative (Negative) Influenza Type B (NICOLASA) Negative (Negative) Influenza A & B Note See Note 09/09/21 Range/Units 13:32 WBC (4.8-10.8) X10*3/uL RBC (4.20-5.50) X10*6/uL Hgb (12.0-16.0) g/dl Hct (37.0-47.0) % MCV (80.0-98.0) fL MCH (27.0-33.0) pg MCHC (31.0-35.0) g/dl RDW (11.0-16.0) % Plt Count (160-400) X10*3/uL MPV (9.4-12.3) fL Immature Gran % (Auto) (0.0-0.4) % Neut % (Auto) (45-73) % Lymph % (Auto) (20-40) % [place] % (Auto) (2-11) % Eos % (Auto) (0-4) % Baso % (Auto) (0-2) % Lymph # (Auto) (1.2-4.9) X10*3/uL [place] # (Auto) (0.1-1.2) X10*3/uL Eos # (Auto) (0.0-0.4) X10*3/uL Baso # (Auto) (0.0-0.2) X10*3/uL Abs Immat Gran (auto) (0.00-0.03) X10*3/uL Absolute Neuts (auto) (2.0-8.3) x10*3/uL Absolute Nucleated RBC (0.0-0.012) X10*3/uL Nucleated RBC % (auto) (0.0-0.2) /100WBC Sodium (135-145) mmol/L Potassium (3.3-5.1) mmol/L Chloride (96-108) mmol/L Carbon Dioxide (22-29) mmol/L Anion Gap (12-20) BUN (9-16) mg/dL Creatinine (0.5-1.4) mg/dL Estim Creat Clear Calc Estimated GFR Random Glucose (60-115) mg/dL Calcium (8.4-10.2) mg/dL Troponin I High Sens (<3.5-17.0) ng/L B-Natriuretic Peptide (<100) pg/mL Urine Color YELLOW Urine Appearance CLEAR Urine pH 7.5 (5.0-8.0) Ur Specific [place] 1.010 (1.005-1.025) Urine Protein NEG (NEG-TRACE) MG/DL Urine Glucose (UA) NEG (NEG) MG/DL Urine Ketones NEG (NEG) MG/DL Urine Blood NEG (NEG) Urine Nitrite NEG (NEG) Ur Leukocyte Esterase NEG (NEG) Urine Test (NEGATIVE) COVID-19 (KAMRYN) (Negative) COVID-19 Clin Com Influenza Type A (NICOLASA) (Negative) Influenza Type B (NICOLASA) (Negative) Influenza A & B Note ECG Data Interpretation: Normal sinus at a rate of 79, TX interval 142, QRS 76, QTC 442. Normal axis. No ST elevations or depressions, no T-wave abnormalities. Discharge Plan Discharge Clinical Impression: Thrombocytopenia, Upper respiratory infection, Acute bronchospasm Patient Disposition: Home, Self-Care Additional Instructions: Please call your primary care provider today to set up an appointment to investigate the cause of your low platelets. Please use your albuterol inhaler, 2 puffs every 4 hours for the next 3-4 days. Please use prednisone as prescribed, as well as Zofran. Please return to emergency room for any new or concerning symptoms. Prescriptions: New ondansetron 4 mg tablet,disintegrating 4 mg PO Q8H Qty: 3 0RF albuterol sulfate 90 mcg/actuation HFA aerosol inhaler 2 puff inhalation Q4-6H PRN (Reason: shortness of breath or wheezing) Qty: 6.7 0RF prednisone 20 mg tablet 40 mg PO DAILY 5 Days Qty: 10 0RF No Action ibuprofen 600 mg tablet 600 mg PO Q6H PRN (Reason: pain) Qty: 30 0RF oxycodone 5 mg tablet 5 mg PO Q4-6H PRN (Reason: pain) Qty: 30 0RF ondansetron 4 mg tablet,disintegrating 4 mg PO Q6-8H PRN (Reason: nausea and vomiting) Qty: 14 0RF clonazepam 1 mg tablet 1 mg PO TID 0RF gabapentin 800 mg tablet 800 mg PO TID 0RF sertraline 100 mg tablet 150 mg PO DAILY 0RF methadone 10 mg/5 mL solution 60 mg PO DAILY 0RF
[2021-09-09 13:43] LABS: Appearance Urine CLEAR; Color Urine YELLOW; Glucose Urine UA NEG (NEG); Leukocyte Esterase Urine NEG (NEG); Nitrite Urine NEG (NEG); PH 7.5 (5.0-8.0); Urine Blood NEG (NEG); Urine Ketones NEG (NEG); Urine Protein NEG (NEG-TRACE)
[2021-09-09] MEDS: Albuterol Sulfate 90 MCG 8 GM INHALER 2 PUFF INHALE (13:45)
[2021-09-09 13:46] LABS: UPreg QC Valid YES; Urine Pregnancy NEGATIVE (NEGATIVE)
[2021-09-09] MEDS: Ketorolac Tromethamine 15 MG/ML VIAL IM (13:46)
[2021-09-09] MEDS: Ondansetron ODT 4 MG TAB.RAPDIS TRANSLINGU (13:46)
[2021-09-09] MEDS: diphenhydrAMINE HCL 25 MG TABLET 50 MG PO (13:46)
[2021-09-09] MEDS: Metoclopramide HCl 10 MG TABLET PO (13:47)
[2021-09-09 13:55] LABS: COVID-19 Test Negative (Negative); IDNOW Serial# 16C4AD1C; Influenza A Negative (Negative); Influenza B2 Negative (Negative)
[2021-09-09 14:10] VITALS: PULSE 89; RESP 18; TEMP 37.2; O2SAT 99
== END 2021-09-09 14:25 | disposition home or self-care (01) ==
PROVIDERS: Physician Assistant; Emergency Provider Emergency Medicine; PCP Internal Medicine
DX: D69.6 Thrombocytopenia, unspecified (principal); J06.9 Acute upper respiratory infection, unspecified; J98.01 Acute bronchospasm; R50.9 Fever, unspecified; Z20.822 Contact with and (suspected) exposure to COVID-19; R06.02 Shortness of breath; F19.10 Other psychoactive substance abuse, uncomplicated; B19.20 Unspecified viral hepatitis C without hepatic coma; F17.200 Nicotine dependence, unspecified, uncomplicated; Z79.899 Other long term (current) drug therapy
CPT/HCPCS: 36415; 71045; 80048; 81003; 81025; 83880; 84484; 85025; 87502; 87635; 93005; 96372; 99284; J1885; Q0163

== ENCOUNTER 2021-09-19 07:33 | Outpatient (REF) | payer MEDICAID, SELFPAY ==
--- NOTE | ~2021-09-19 | CT_ITS ---
EXAMINATION: CT HEAD WITHOUT CONTRAST CLINICAL INFORMATION: Thrombocytopenia. Migraine headaches. COMPARISON: None TECHNIQUE: Contiguous axial imaging was performed from the skull base to vertex without intravenous administration of contrast. This CT examination was performed using dose optimization techniques as appropriate, variously including the following: *Automated exposure control *Adjustment of mA and/or kV according to patient size (this includes techniques or standardized protocols for targeted exams where dose is matched to indication/reason for exam; i.e. extremities or head) *Use of iterative reconstruction technique DLP: 710 mGy-cm FINDINGS: There is no evidence of acute intracranial hemorrhage or territorial infarction. No abnormal mass effect or midline shift is seen. Gomez to white matter differentiation is well preserved. No extra-axial fluid collections are identified. The ventricles are normal in size. There is no abnormal attenuation within the brain parenchyma. The osseous structures and soft tissues are normal. There is sphenoid sinus disease. The mastoid air cells and visualized portions of the paranasal sinuses are otherwise clear. CT/CT head/brain wo con IMPRESSION: Sphenoid sinus disease. Otherwise unremarkable exam.
== END 2021-09-19 07:34 | disposition home or self-care (01) ==
LOC: HO.CT 07:33
PROVIDERS: PCP Internal Medicine; Visit Provider Internal Medicine
DX: D69.6 Thrombocytopenia, unspecified (principal); G44.89 Other headache syndrome
CPT/HCPCS: 70450

== ENCOUNTER 2022-02-02 15:51 | Emergency (ER) | payer MEDICAID, SELFPAY ==
[2022-02-02 16:02] VITALS: BP 104/68; PULSE 88; RESP 18; TEMP 36.9; O2SAT 98; BMI 31.1
--- NOTE | 2022-02-02 16:06 | ED_ITS ---
HPI - General Adult General Chief complaint: General Medical Stated complaint: COVID + Time Seen by Provider: 02/02/22 16:06 Source: patient Mode of arrival: ambulatory Limitations: no limitations History of Present Illness HPI narrative: Patient is a 36 year old female presenting to the emergency department today after testing positive for COVID-19. Patient states that she hasn't been feeling well for 2 days and tested positive for COVID-19. Patient states that she needs paperwork stating that for the services she receives at home. Patient denies any dizziness, lightheadedness, abdominal pain, nausea, vomiting, fever, chills, blurry vision, double vision, loss of vision, chest pain, difficulty breathing, shortness of breath, back pain, night sweats, pain with urination, increased urinary frequency, increased urinary urgency, blood in her urine or stool, syncope or a near syncopal episode, recent trauma or falls, bowel incontinence, bladder incontinence, bowel retention, bladder retention, or any other complaints at this time. Onset (ago): day(s) (2) Severity: mild Severity scale (1-10): 1 Relieving factors: none Exacerbating factors: none Associated symptoms: denies other symptoms Treatments prior to arrival: none Related Data Home Medications Medication Instructions Recorded Confirmed clonazepam 1 mg tablet 1 mg PO TID 05/01/20 05/08/20 gabapentin 800 mg tablet 800 mg PO TID 05/01/20 05/08/20 methadone 10 mg/5 mL oral solution 60 mg PO DAILY 05/01/20 05/08/20 sertraline 100 mg tablet 150 mg PO DAILY 05/01/20 05/08/20 Previous Rx's Medication Instructions Recorded ibuprofen 600 mg tablet 600 mg PO Q6H PRN pain #30 tabs 05/14/20 oxycodone 5 mg tablet 5 mg PO Q4-6H PRN pain #30 tabs 05/14/20 ondansetron 4 mg disintegrating 4 mg PO Q6-8H PRN nausea and 07/02/21 tablet vomiting #14 tabs albuterol sulfate 90 mcg/actuation 2 puff inhalation Q4-6H PRN 09/09/21 aerosol inhaler shortness of breath or wheezing #6.7 grams ondansetron 4 mg disintegrating 4 mg PO Q8H #3 tabs 09/09/21 tablet prednisone 20 mg tablet 40 mg PO DAILY 5 days #10 tabs 09/09/21 Allergies Allergy/AdvReac Type Severity Reaction Status Date / Time No Known Allergies Allergy Verified 09/09/21 11:37 Review of Systems Constitutional: Constitutional: Reports no additional constitutional complaints, Denies chills, Denies fever(s) and Denies night sweats Eyes: Eyes: Reports no additional eye complaints, Denies blurry vision, Denies change in vision, Denies diplopia, Denies eye discharge, Denies loss of vision and Denies eye pain ENT: Denies dizziness Cardiovascular: Cardiovascular: Reports no additional cardiovascular complaints, Denies chest pain, Denies lightheadedness, Denies Loss of Consciousness and Denies dyspnea Respiratory: Respiratory: Reports no additional respiratory complaints and Denies dyspnea Gastrointestinal: Gastrointestinal: Reports no additional gastrointestinal complaints, Denies abdominal pain, Denies melena, Denies hematochezia, Denies change in bowel habits and Denies change in stool character Genitourinary: Genitourinary: Denies hematuria, Denies urinary frequency, Denies dysuria, Denies urinary incontinence, Denies urinary hesitancy and Denies urinary urgency Musculoskeletal: Musculoskeletal: Reports no additional musculoskeletal complaints, Denies numbness and Denies tingling Neurologic: Denies dizziness, Denies loss of vision, Denies numbness and Denies tingling Psychiatric: Psychiatric: Reports no additional psychiatric complaints Endocrine: Endocrine: Reports no additional endocrine complaints Hematologic/Lymphatic: Hematologic/Lymphatic: Reports no additional hematologic/lymphatic complaints Allergic/Immunologic: Allergic/Immunologic: Reports no additional allergic/immunologic complaints [facility] Past Medical History Attestation statement: The following information was validated with the patient. 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 other at home: Yes (children-age 2 yrs / age 7 months) Do you presently have visiting nurse or other home services: No Alcohol intake: unknown Patient Tobacco Use Status: Current everyday Tobacco user Years Smoked: 20 Substance Use Type: Former Substance User Advance Directives: No Advance Directives Information Provided: No Physical Exam ED Vital Signs: Vital Signs - 24 hr 02/02/22 16:02 Temperature 98.4 F Pulse Rate 88 Respiratory Rate 18 Blood Pressure 104/68 Pulse Oximetry 98 Oxygen Delivery Method Room Air BMI result Body Mass Index 31.1 Const General: cooperative, no acute distress, alert and awake Nutritional Appearance: well nourished Orientation/consciousness: patient oriented x3 Limitations: no limitations HENMT Head: Yes normal to inspection and Yes atraumatic Ears: hearing grossly normal bilaterally and external ears normal General nose exam: Normal external nose present, no nasal discharge noted and no epistaxis Face and sinus: Yes normal facial exam, No abrasion and No laceration Mouth: Normal oral and palatal mucosa present, no drooling and no muffled voice Eyes General: appearance normal, both eyes and all related structures Periorbital: periorbital findings normal Eyelids: Yes eyelids normal Conjunctivae: conjunctivae normal Pupils: Equal, round and reactive pupils present EOM: EOMs intact bilaterally Neck Neck: Yes normal visual inspection, Yes full ROM and Yes no lymphadenopathy Chest Chest palpation & inspection: normal inspection of the chest Resp Effort & Inspection: normal respiratory effort and able to speak in complete sentences Auscultation: clear to auscultation bilaterally Cardio Rate: regular rate Rhythm: regular rhythm GI Inspection: Yes normal to inspection Neuro General: patient oriented x3 and moves all extremities Cranial nerves: Yes Equal, round and reactive pupils present Cognition (Neuro): normal cognition Motor exam (neuro): 5/5 motor strength present throughout Sensory Exam: Normal double simultaneous stimulation for sensation Coordination: [id number] test normal Extrem General: Yes normal to inspection, Yes full ROM and Yes capillary refill normal Psych Appearance: grossly normal Mental Status: mental status grossly normal Affect: normal affect Attitude: cooperative Thought process: Normal thought process present Thought content: Normal thought content present Insight: Good insight present (Psych) Medical Decision Making MDM Narrative Medical decision making narrative: Patient is a 36 year old female presenting to the emergency department today after testing COVID-19 positive. Patient's physical exam was unremarkable. I explained my physical exam findings to the patient. I answered all questions asked by the patient. I stressed the importance of the patient taking her medication as prescribed. I stressed the importance of the patient following up with her primary care provider. I stressed the importance of the patient returning to the emergency department immediately if her symptoms were to worsen or if she were to develop any dizziness, shortness of breath, difficulty breathing, chest pain, blurry vision, loss of vision, nausea, vomiting, abdominal pain, fever, chills, back pain, or any other complaints. Patient verbalized agreement and understanding with this treatment plan and discharge. Differential Diagnosis Differential Diagnosis: COVID-19 Medical Records Medical records reviewed: Yes I reviewed the patient's medical records. Discharge Plan Discharge Clinical Impression: COVID-19 Patient Disposition: Home, Self-Care Instructions: COVID-19 (Coronavirus Disease 2019) (ED) Additional Instructions: Follow up with your primary care provider. Return to the emergency department immediately if your symptoms worsen or if you develop any dizziness, shortness of breath, difficulty breathing, chest pain, blurry vision, loss of vision, nausea, vomiting, abdominal pain, fever, chills, back pain, or any other complaints. Prescriptions: No Action ibuprofen 600 mg tablet 600 mg PO Q6H PRN (Reason: pain) Qty: 30 0RF oxycodone 5 mg tablet 5 mg PO Q4-6H PRN (Reason: pain) Qty: 30 0RF ondansetron 4 mg tablet,disintegrating 4 mg PO Q8H Qty: 3 0RF albuterol sulfate 90 mcg/actuation HFA aerosol inhaler 2 puff inhalation Q4-6H PRN (Reason: shortness of breath or wheezing) Qty: 6.7 0RF prednisone 20 mg tablet 40 mg PO DAILY 5 Days Qty: 10 0RF ondansetron 4 mg tablet,disintegrating 4 mg PO Q6-8H PRN (Reason: nausea and vomiting) Qty: 14 0RF clonazepam 1 mg tablet 1 mg PO TID gabapentin 800 mg tablet 800 mg PO TID sertraline 100 mg tablet 150 mg PO DAILY methadone 10 mg/5 mL solution 60 mg PO DAILY Referrals: Nela Murillo MD [Primary Care Provider] - Stand Alone Forms: Work/School Release Interventions: ED Discharge Assessment Last Done: 02/02/22 16:21 Discharge Date/Time: 02/02/22 16:21 Print Language: Latvian
== END 2022-02-02 16:21 | disposition home or self-care (01) ==
PROVIDERS: Emergency Provider Emergency Medicine; PCP Internal Medicine
DX: U07.1 COVID-19 (principal)
CPT/HCPCS: 99282

== ENCOUNTER 2022-03-16 13:30 | Emergency (ER) | payer MEDICAID, SELFPAY ==
[2022-03-16 15:02] VITALS: BP 142/98; PULSE 93; RESP 18; TEMP 36.5; O2SAT 98; BMI 32.9
--- NOTE | 2022-03-16 16:36 | ED.GENADULT ---
HPI - General Adult General Chief complaint: Back Pain/Injury Stated complaint: pain going from back to R leg Time Seen by Provider: 03/16/22 16:36 Source: patient Mode of arrival: ambulatory Limitations: no limitations History of Present Illness HPI narrative: Patient is a 36 year old assigned female at with a history of IVDU, anxiety, depression, and hepatitis C presenting to the emergency department today with low back pain. Patient states that she has been having right sided back pain that radiates down her right leg over the last few days. Patient denies any dizziness, lightheadedness, abdominal pain, nausea, vomiting, fever, chills, blurry vision, double vision, loss of vision, chest pain, difficulty breathing, shortness of breath, night sweats, pain with urination, increased urinary frequency, increased urinary urgency, blood in her urine or stool, syncope or a near syncopal episode, recent trauma or falls, bowel incontinence, bladder incontinence, bowel retention, bladder retention, or any other complaints at this time. Onset (ago): day(s) (2) Location: back Radiation: extremity Severity: mild Severity scale (1-10): 2 Quality: dull Pain Consistency: constant Relieving factors: none Exacerbating factors: none Associated symptoms: denies other symptoms Treatments prior to arrival: none Related Data Home Medications Medication Instructions Recorded Confirmed clonazepam 1 mg tablet 1 mg PO TID 05/01/20 05/08/20 gabapentin 800 mg tablet 800 mg PO TID 05/01/20 05/08/20 methadone 10 mg/5 mL oral solution 60 mg PO DAILY 05/01/20 05/08/20 sertraline 100 mg tablet 150 mg PO DAILY 05/01/20 05/08/20 Previous Rx's Medication Instructions Recorded ibuprofen 600 mg tablet 600 mg PO Q6H PRN pain #30 tabs 05/14/20 oxycodone 5 mg tablet 5 mg PO Q4-6H PRN pain #30 tabs 05/14/20 ondansetron 4 mg disintegrating 4 mg PO Q6-8H PRN nausea and 07/02/21 tablet vomiting #14 tabs albuterol sulfate 90 mcg/actuation 2 puff inhalation Q4-6H PRN 09/09/21 aerosol inhaler shortness of breath or wheezing #6.7 grams ondansetron 4 mg disintegrating 4 mg PO Q8H #3 tabs 09/09/21 tablet prednisone 20 mg tablet 40 mg PO DAILY 5 days #10 tabs 09/09/21 cyclobenzaprine 5 mg tablet 5 mg PO TID PRN low back pain 7 03/16/22 days #21 tabs Allergies Allergy/AdvReac Type Severity Reaction Status Date / Time No Known Allergies Allergy Verified 09/09/21 11:37 Review of Systems Constitutional: Constitutional: Reports no additional constitutional complaints, Denies chills, Denies fever(s) and Denies night sweats Eyes: Eyes: Reports no additional eye complaints, Denies blurry vision, Denies change in vision, Denies diplopia, Denies eye discharge, Denies loss of vision and Denies eye pain ENT: Denies dizziness Cardiovascular: Cardiovascular: Reports no additional cardiovascular complaints, Denies chest pain, Denies lightheadedness, Denies Loss of Consciousness and Denies dyspnea Respiratory: Respiratory: Reports no additional respiratory complaints and Denies dyspnea Gastrointestinal: Gastrointestinal: Reports no additional gastrointestinal complaints, Denies abdominal pain, Denies melena, Denies hematochezia, Denies change in bowel habits and Denies change in stool character Genitourinary: Genitourinary: Denies hematuria, Denies urinary frequency, Denies dysuria, Denies urinary incontinence, Denies urinary hesitancy and Denies urinary urgency Musculoskeletal: Musculoskeletal: Reports no additional musculoskeletal complaints, Reports back pain, Denies numbness and Denies tingling Neurologic: Denies dizziness, Denies loss of vision, Denies numbness and Denies tingling Psychiatric: Psychiatric: Reports no additional psychiatric complaints Endocrine: Endocrine: Reports no additional endocrine complaints Hematologic/Lymphatic: Hematologic/Lymphatic: Reports no additional hematologic/lymphatic complaints Allergic/Immunologic: Allergic/Immunologic: Reports no additional allergic/immunologic complaints ON LICENSE OF [facility] Past Medical History Attestation statement: The following information was validated with the patient. 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 at home: Yes (children-age 2 yrs / age 7 months) Do you presently have visiting nurse or other home services: No Alcohol intake: unknown Patient Tobacco Use Status: Current everyday Tobacco user Years Smoked: 20 Substance Use Type: Former Substance User Advance Directives: No Advance Directives Information Provided: No Physical Exam ED Vital Signs: Vital Signs - 24 hr 03/16/22 15:02 03/16/22 16:51 Temperature 97.7 F 98.8 F Pulse Rate 93 85 Respiratory Rate 18 14 Blood Pressure 142/98 H 124/62 Pulse Oximetry 98 97 Oxygen Delivery Method Room Air Room Air BMI result Body Mass Index 32.9 Const General: cooperative, no acute distress, alert and awake Nutritional Appearance: well nourished Orientation/consciousness: patient oriented x3 Limitations: no limitations HENMT Head: Yes normal to inspection and Yes atraumatic Ears: hearing grossly normal bilaterally and external ears normal General nose exam: Normal external nose present, no nasal discharge noted and no epistaxis Face and sinus: Yes normal facial exam, No abrasion and No laceration Mouth: Normal oral and palatal mucosa present, no drooling and no muffled voice Eyes General: appearance normal, both eyes and all related structures Periorbital: periorbital findings normal Eyelids: Yes eyelids normal Conjunctivae: conjunctivae normal Pupils: Equal, round and reactive pupils present EOM: EOMs intact bilaterally Neck Neck: Yes normal visual inspection, Yes full ROM and Yes no lymphadenopathy Chest Chest palpation & inspection: normal inspection of the chest Resp Effort & Inspection: normal respiratory effort and able to speak in complete sentences Auscultation: clear to auscultation bilaterally Cardio Rate: regular rate Rhythm: regular rhythm GI Inspection: Yes normal to inspection General: Yes no CVA tenderness Back/Spine/Pelvis Back: no CVA tenderness Cervical Spine: normal cervical lordosis and cervical ROM normal Thoracic/Lumbar Spine: thoracic and lumbar spine normal to inspection and thoraco-lumbar ROM normal Pelvis: no pain with anterior-posterior compression Neuro General: patient oriented x3 and moves all extremities Cranial nerves: Yes Equal, round and reactive pupils present Cognition (Neuro): normal cognition Motor exam (neuro): 5/5 motor strength present throughout Sensory Exam: Normal double simultaneous stimulation for sensation Coordination: [id number] test normal Extrem General: Yes normal to inspection, Yes full ROM and Yes capillary refill normal Psych Appearance: grossly normal Mental Status: mental status grossly normal Affect: normal affect Attitude: cooperative Thought process: Normal thought process present Thought content: Normal thought content present Insight: Good insight present (Psych) Medical Decision Making MDM Narrative Medical decision making narrative: Patient is a 36 year old assigned female at with a history of IVDU, hepatitis C, anxiety, and depression presenting to the emergency department today with low back pain. Patient's physical exam was unremarkable. I explained my physical exam findings to the patient. I answered all questions asked by the patient. Patient received IM Toradol and PO Flexeril which she stated helped her symptoms significantly. I stressed the importance of the patient taking her medication as prescribed. I stressed the importance of the patient following up with her primary care provider and a network support specialist. I stressed the importance of the patient returning to the emergency department immediately if her symptoms were to worsen or if she were to develop any dizziness, shortness of breath, difficulty breathing, chest pain, blurry vision, loss of vision, nausea, vomiting, abdominal pain, fever, chills, back pain, or any other complaints. Patient verbalized agreement and understanding with this treatment plan and discharge. Medical Records Medical records reviewed: Yes I reviewed the patient's medical records. Discharge Plan Discharge Clinical Impression: Sciatica Patient Disposition: Home, Self-Care Instructions: Sciatica (ED) Additional Instructions: Follow up with your primary care provider. Return to the emergency department immediately if your symptoms worsen or if you develop any dizziness, shortness of breath, difficulty breathing, chest pain, blurry vision, loss of vision, nausea, vomiting, abdominal pain, fever, chills, back pain, or any other complaints. Prescriptions: New cyclobenzaprine 5 mg tablet 5 mg PO TID PRN (Reason: low back pain) 7 Days Qty: 21 0RF No Action ibuprofen 600 mg tablet 600 mg PO Q6H PRN (Reason: pain) Qty: 30 0RF oxycodone 5 mg tablet 5 mg PO Q4-6H PRN (Reason: pain) Qty: 30 0RF ondansetron 4 mg tablet,disintegrating 4 mg PO Q8H Qty: 3 0RF albuterol sulfate 90 mcg/actuation HFA aerosol inhaler 2 puff inhalation Q4-6H PRN (Reason: shortness of breath or wheezing) Qty: 6.7 0RF prednisone 20 mg tablet 40 mg PO DAILY 5 Days Qty: 10 0RF ondansetron 4 mg tablet,disintegrating 4 mg PO Q6-8H PRN (Reason: nausea and vomiting) Qty: 14 0RF clonazepam 1 mg tablet 1 mg PO TID gabapentin 800 mg tablet 800 mg PO TID sertraline 100 mg tablet 150 mg PO DAILY methadone 10 mg/5 mL solution 60 mg PO DAILY Referrals: [facility] [Provider Group] (Call to establish and follow up with a spinal specialist. ) Nela Murillo MD [Primary Care Provider] - Stand Alone Forms: Work/School Release Print Language: Mongolian
[2022-03-16 16:51] VITALS: BP 124/62; PULSE 85; RESP 14; TEMP 37.1; O2SAT 97
--- NOTE | 2022-03-16 16:53 | PC.NURSE ---
Discharge instructions provided to pt. Pt request x-ray. MLP notified. MLP at bedside.
[2022-03-16] MEDS: Cyclobenzaprine HCl 5 MG TABLET PO (17:04)
[2022-03-16] MEDS: Ketorolac Tromethamine 15 MG/ML VIAL IM (17:04)
== END 2022-03-16 17:09 | disposition home or self-care (01) ==
PROVIDERS: Emergency Provider Emergency Medicine; PCP Internal Medicine
DX: M54.41 Lumbago with sciatica, right side (principal); F11.20 Opioid dependence, uncomplicated; F17.200 Nicotine dependence, unspecified, uncomplicated
CPT/HCPCS: 96372; 99284; J1885

== ENCOUNTER 2022-06-02 18:00 | Emergency (ER) | payer MEDICAID, SELFPAY ==
--- NOTE | ~2022-06-02 | CT_ITS ---
EXAMINATION: CT HEAD WITHOUT CONTRAST CLINICAL INFORMATION: Left facial numbness COMPARISON: CT head 06/11/2018 TECHNIQUE: Contiguous axial imaging was performed from the skull base to vertex without intravenous administration of contrast. Coronal and sagittal reformatted images are performed at the CT scanner. [This CT examination was performed using dose optimization techniques as appropriate, variously including the following: *Automated exposure control *Adjustment of mA and/or kV according to patient size (this includes techniques or standardized protocols for targeted exams where dose is matched to indication/reason for exam; i.e. extremities or head) *Use of iterative reconstruction technique] DLP: 697 mGy-cm. FINDINGS: There is no evidence of acute intracranial hemorrhage or territorial infarction. No abnormal mass-effect or midline shift is seen. Gomez to white matter differentiation is well preserved. No extra-axial fluid collections are identified. The ventricles are normal in size. There is no abnormal attenuation within the brain parenchyma. There is no osseous abnormality. The mastoid air cells and visualized portions of the paranasal sinuses are well-aerated. CT/CT head for stroke IMPRESSION: No acute intracranial pathology. This critical result was discussed with LITZY Scruggs on 06/02/2022, 6:24 PM and it was ascertained that the content and urgency of the report was understood at the time of direct communication.
[2022-06-02 18:03] VITALS: BP 137/79; PULSE 95; RESP 18; TEMP 37; O2SAT 98; BMI 33.6
--- NOTE | 2022-06-02 18:05 | ECG_ITS ---
Test Reason : NUMBNESS Blood Pressure : / mmHG Vent. Rate : 085 BPM Atrial Rate : 085 BPM P-R Int : 166 ms QRS Dur : 080 ms QT Int : 366 ms P-R-T Axes : 050 018 -02 degrees QTc Int : 435 ms Normal sinus rhythm Possible Left atrial enlargement Nonspecific T wave abnormality Abnormal ECG When compared with ECG of 09-SEP-2021 11:38, No significant change was found Referred By: Ellie Jeffrey Electronically Signed By:ARAVIND SANDRA
--- NOTE | 2022-06-02 18:05 | ED_ITS ---
HPI - Neuro Symptoms/Deficit General Chief Complaint: Neuro Symptoms/Deficit <LITZY Scruggs - Last Filed: 06/02/22 18:16> Stated Complaint: Facial numbness <LITZY Scruggs - Last Filed: 06/02/22 18:16> Time Seen by Provider: 06/02/22 20:25 <LITZY Scruggs - Last Filed: 06/02/22 18:16> Source: patient <Shawn Hayden MD - Last Filed: 06/02/22 21:24> Mode of arrival: ambulatory <Shawn Hayden MD - Last Filed: 06/02/22 21:24> Limitations: no limitations <Shawn Hayden MD - Last Filed: 06/02/22 21:24> History of Present Illness HPI Narrative: Patient no significant past medical history except for hepatitis-C noticed numbness of left side of the face just half an hour prior to arrival unable to close left eye difficulty in swallowing drooling on the left side of his no other weakness no headache no history of Lyme disease <Shawn Hayden MD - Last Filed: 06/02/22 21:24> Related Data Home Medications: Home Medications Medication Instructions Recorded Confirmed clonazepam 1 mg tablet 1 mg PO TID 05/01/20 05/08/20 gabapentin 800 mg tablet 800 mg PO TID 05/01/20 05/08/20 methadone 10 mg/5 mL oral solution 60 mg PO DAILY 05/01/20 05/08/20 sertraline 100 mg tablet 150 mg PO DAILY 05/01/20 05/08/20 Previous Rx's Medication Instructions Recorded ibuprofen 600 mg tablet 600 mg PO Q6H PRN pain #30 tabs 05/14/20 oxycodone 5 mg tablet 5 mg PO Q4-6H PRN pain #30 tabs 05/14/20 ondansetron 4 mg disintegrating 4 mg PO Q6-8H PRN nausea and 07/02/21 tablet vomiting #14 tabs albuterol sulfate 90 mcg/actuation 2 puff inhalation Q4-6H PRN 09/09/21 aerosol inhaler shortness of breath or wheezing #6.7 grams ondansetron 4 mg disintegrating 4 mg PO Q8H #3 tabs 09/09/21 tablet prednisone 20 mg tablet 40 mg PO DAILY 5 days #10 tabs 09/09/21 cyclobenzaprine 5 mg tablet 5 mg PO TID PRN low back pain 7 03/16/22 days #21 tabs artificial tears(hypromellose) 0.5 1 drp ophthalmic-Left Q2-4H PRN 06/02/22 % eye drops (Tears Lubricant) dry eyes #15 mL prednisone 20 mg tablet 60 mg PO DAILY #21 tabs 06/02/22 valacyclovir 1 gram tablet 1,000 mg PO TID #21 tabs 06/02/22 (Valtrex) <LITZY Scruggs - Last Filed: 06/02/22 18:16> Allergies/Adverse Reactions: Allergies Allergy/AdvReac Type Severity Reaction Status Date / Time No Known Allergies Allergy Verified 09/09/21 11:37 <LITZY Scruggs - Last Filed: 06/02/22 18:16> Review of Systems Review of Systems: Yes all other systems are reviewed and are negative <Shawn Hayden MD - Last Filed: 06/02/22 21:24> [facility] Past Medical History Medical History: Medical History Anxiety and depression Hepatitis C History of intravenous drug abuse Lab test negative for COVID-19 virus Lab test positive for detection of COVID-19 virus Obesity Smoker Supraumbilical hernia <LITZY Scruggs - Last Filed: 06/02/22 18:16> Surgical History: Surgical History History of section (~2006) History of umbilical hernia repair (~09/29/17) <LITZY Scruggs - Last Filed: 06/02/22 18:16> Social History Social History: Social History Are you a primary healthcare administrator to a significant other at home: Yes (children-age 2 yrs / age 7 months) Do you presently have visiting nurse or other home services: No Alcohol intake: unknown Patient Tobacco Use Status: Current everyday Tobacco user Years Smoked: 20 Substance Use Type: Former Substance User Advance Directives: No Advance Directives Information Provided: No <LITZY Scruggs - Last Filed: 06/02/22 18:16> Physical Exam Vital Signs: Vital Signs: Last Vital Signs Temp 98.6 F 06/02/22 18:03 Pulse 87 06/02/22 21:19 Resp 20 06/02/22 21:19 BP 102/73 06/02/22 21:19 Pulse Ox 97 06/02/22 21:19 O2 Del Method 06/02/22 21:19 BMI result Body Mass Index 33.6 <LITZY Scruggs - Last Filed: 06/02/22 18:16> Vital Signs: Last Vital Signs Temp 98.6 F 06/02/22 18:03 Pulse 87 06/02/22 21:19 Resp 20 06/02/22 21:19 BP 102/73 06/02/22 21:19 Pulse Ox 97 06/02/22 21:19 O2 Del Method 06/02/22 21:19 BMI result Body Mass Index 33.6 <Shawn Hayden MD - Last Filed: 06/02/22 21:24> Appearance: Alert. Oriented X3. No acute distress. Eyes: PERRLA, No Nystagmus ENT: Pharynx normal. Oral Mucosa moist Neck: Normal inspection. Neck supple. CVS: Normal heart rate and rhythm. Pulses normal. Respiratory: No respiratory distress. Equal air entry bilateral, no wheezing/rales/rhonchi Abdomen: Soft and nontender. Bowel sounds are present, no mass palpable, no CVA tenderness Skin: Skin warm and dry. Normal skin color. Normal skin turgor. Extremities: No lower extremity edema. No calf tenderness Neuro: Oriented X 3. No motor deficit. 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 Denies head trauma or LOC. Denies taking AC On exam left-sided facial droop noted, forehead moving but decreased compared to right EKG, labs, CT head for stroke protocol ordered in triage. Charge nurse aware <LITZY Scruggs - Last Filed: 06/02/22 18:16> Medications Administered Discontinued Medications Generic Name Dose Route Start Last Admin Trade Name Freq PRN Reason Stop Dose Admin Prednisone 60 mg 06/02/22 20:38 06/02/22 21:18 Prednisone 20 Mg Tablet PO 06/02/22 20:39 60 mg ONCE ONE Administration Valacyclovir HCl 1,000 mg 06/02/22 20:38 06/02/22 21:18 Valacyclovir Hcl 1,000 Mg Tablet PO 06/02/22 20:39 1,000 mg ONCE ONE Administration <LITZY Scruggs - Last Filed: 06/02/22 18:16> Medications Administered Discontinued Medications Generic Name Dose Route Start Last Admin Trade Name Freq PRN Reason Stop Dose Admin Prednisone 60 mg 06/02/22 20:38 06/02/22 21:18 Prednisone 20 Mg Tablet PO 06/02/22 20:39 60 mg ONCE ONE Administration Valacyclovir HCl 1,000 mg 06/02/22 20:38 06/02/22 21:18 Valacyclovir Hcl 1,000 Mg Tablet PO 06/02/22 20:39 1,000 mg ONCE ONE Administration <Shawn Hayden MD - Last Filed: 06/02/22 21:24> Medical Decision Making Medical Decision Making MDM Narrative: Patient with left Bowie's palsy CT scan of the head is negative labs were stable discharge patient home on prednisone and Valtrex advised to follow with neurologist <Shawn Hayden MD - Last Filed: 06/02/22 21:24> Lab Data [facility] Lab Attestation statement: I reviewed the patient's lab results. <Shawn Hayden MD - Last Filed: 06/02/22 21:24> Result Diagrams: : 06/02/22 18:31 06/02/22 18:31 <LITZY Scruggs - Last Filed: 06/02/22 18:16> Labs: Lab Results 06/02/22 06/02/22 06/02/22 Range/Units 18:31 18:31 18:31 WBC 3.7 L (4.8-10.8) X10*3/uL RBC 4.21 (4.20-5.50) X10*6/uL Hgb 11.9 L (12.0-16.0) g/dl Hct 35.4 L (37.0-47.0) % MCV 84.1 (80.0-98.0) fL MCH 28.3 (27.0-33.0) pg MCHC 33.6 (31.0-35.0) g/dl RDW 13.4 (11.0-16.0) % Plt Count 109 L (160-400) X10*3/uL MPV 10.9 (9.4-12.3) fL Immature Gran % (Auto) 0.3 (0.0-0.4) % Neut % (Auto) 37.2 L (45-73) % Lymph % (Auto) 53.8 H (20-40) % Brantley % (Auto) 4.3 (2-11) % Eos % (Auto) 4.1 H (0-4) % Baso % (Auto) 0.3 (0-2) % Lymph # (Auto) 2.0 (1.2-4.9) X10*3/uL Brantley # (Auto) 0.2 (0.1-1.2) X10*3/uL Eos # (Auto) 0.2 (0.0-0.4) X10*3/uL Baso # (Auto) 0.0 (0.0-0.2) X10*3/uL Abs Immat Gran (auto) 0.01 (0.00-0.03) X10*3/uL Absolute Neuts (auto) 1.4 L (2.0-8.3) x10*3/uL Absolute Nucleated RBC 0.000 (0.0-0.012) X10*3/uL Nucleated RBC % (auto) 0.0 (0.0-0.2) /100WBC ESR (0-20) MM/HR PT 11.8 (10.0-13.1) SEC INR 1.0 (0.9-1.1) APTT 35.6 (26.0-36.4) SEC Sodium 140 (135-145) mmol/L Potassium 3.8 (3.3-5.1) mmol/L Chloride 110 H (96-108) mmol/L Carbon Dioxide 24 (22-29) mmol/L Anion Gap 10 L (12-20) BUN 12 (9-16) mg/dL Creatinine 0.68 (0.5-1.4) mg/dL Estim Creat Clear Calc 115.6 Estimated GFR > 60 Random Glucose 98 (60-115) mg/dL Calcium 9.0 (8.4-10.2) mg/dL Magnesium 1.9 (1.6-2.6) mg/dL Total Bilirubin 0.3 (0.0-1.0) mg/dL Direct Bilirubin < 0.2 (0.0-0.5) mg/dL AST 25 (5-31) U/L ALT 24 (0-31) U/L Alkaline Phosphatase 70 (39-117) U/L Troponin I High Sens (<3.5-17.0) ng/L C-Reactive Protein 0.13 (< or = 0.50) mg/dL Total Protein 7.3 (6.5-8.0) g/dL Albumin 4.3 (3.5-5.0) g/dL Influenza Type A (PCR) (Negative) Influenza Type B (PCR) (Negative) RSV RNA Qual (PCR) (Negative) SARS-CoV-2 RNA (RT-PCR) (Negative) 06/02/22 06/02/22 06/02/22 Range/Units 18:31 18:31 18:31 WBC (4.8-10.8) X10*3/uL RBC (4.20-5.50) X10*6/uL Hgb (12.0-16.0) g/dl Hct (37.0-47.0) % MCV (80.0-98.0) fL MCH (27.0-33.0) pg MCHC (31.0-35.0) g/dl RDW (11.0-16.0) % Plt Count (160-400) X10*3/uL MPV (9.4-12.3) fL Immature Gran % (Auto) (0.0-0.4) % Neut % (Auto) (45-73) % Lymph % (Auto) (20-40) % Brantley % (Auto) (2-11) % Eos % (Auto) (0-4) % Baso % (Auto) (0-2) % Lymph # (Auto) (1.2-4.9) X10*3/uL Brantley # (Auto) (0.1-1.2) X10*3/uL Eos # (Auto) (0.0-0.4) X10*3/uL Baso # (Auto) (0.0-0.2) X10*3/uL Abs Immat Gran (auto) (0.00-0.03) X10*3/uL Absolute Neuts (auto) (2.0-8.3) x10*3/uL Absolute Nucleated RBC (0.0-0.012) X10*3/uL Nucleated RBC % (auto) (0.0-0.2) /100WBC ESR 17 (0-20) MM/HR PT (10.0-13.1) SEC INR (0.9-1.1) APTT (26.0-36.4) SEC Sodium (135-145) mmol/L Potassium (3.3-5.1) mmol/L Chloride (96-108) mmol/L Carbon Dioxide (22-29) mmol/L Anion Gap (12-20) BUN (9-16) mg/dL Creatinine (0.5-1.4) mg/dL Estim Creat Clear Calc Estimated GFR Random Glucose (60-115) mg/dL Calcium (8.4-10.2) mg/dL Magnesium (1.6-2.6) mg/dL Total Bilirubin (0.0-1.0) mg/dL Direct Bilirubin (0.0-0.5) mg/dL AST (5-31) U/L ALT (0-31) U/L Alkaline Phosphatase (39-117) U/L Troponin I High Sens < 3.5 (<3.5-17.0) ng/L C-Reactive Protein (< or = 0.50) mg/dL Total Protein (6.5-8.0) g/dL Albumin (3.5-5.0) g/dL Influenza Type A (PCR) NEGATIVE (Negative) Influenza Type B (PCR) NEGATIVE (Negative) RSV RNA Qual (PCR) NEGATIVE (Negative) SARS-CoV-2 RNA (RT-PCR) NEGATIVE (Negative) <LITZY Scruggs - Last Filed: 06/02/22 18:16> Lab Results 06/02/22 06/02/22 06/02/22 Range/Units 18:31 18:31 18:31 WBC 3.7 L (4.8-10.8) X10*3/uL RBC 4.21 (4.20-5.50) X10*6/uL Hgb 11.9 L (12.0-16.0) g/dl Hct 35.4 L (37.0-47.0) % MCV 84.1 (80.0-98.0) fL MCH 28.3 (27.0-33.0) pg MCHC 33.6 (31.0-35.0) g/dl RDW 13.4 (11.0-16.0) % Plt Count 109 L (160-400) X10*3/uL MPV 10.9 (9.4-12.3) fL Immature Gran % (Auto) 0.3 (0.0-0.4) % Neut % (Auto) 37.2 L (45-73) % Lymph % (Auto) 53.8 H (20-40) % Brantley % (Auto) 4.3 (2-11) % Eos % (Auto) 4.1 H (0-4) % Baso % (Auto) 0.3 (0-2) % Lymph # (Auto) 2.0 (1.2-4.9) X10*3/uL Brantley # (Auto) 0.2 (0.1-1.2) X10*3/uL Eos # (Auto) 0.2 (0.0-0.4) X10*3/uL Baso # (Auto) 0.0 (0.0-0.2) X10*3/uL Abs Immat Gran (auto) 0.01 (0.00-0.03) X10*3/uL Absolute Neuts (auto) 1.4 L (2.0-8.3) x10*3/uL Absolute Nucleated RBC 0.000 (0.0-0.012) X10*3/uL Nucleated RBC % (auto) 0.0 (0.0-0.2) /100WBC ESR (0-20) MM/HR PT 11.8 (10.0-13.1) SEC INR 1.0 (0.9-1.1) APTT 35.6 (26.0-36.4) SEC Sodium 140 (135-145) mmol/L Potassium 3.8 (3.3-5.1) mmol/L Chloride 110 H (96-108) mmol/L Carbon Dioxide 24 (22-29) mmol/L Anion Gap 10 L (12-20) BUN 12 (9-16) mg/dL Creatinine 0.68 (0.5-1.4) mg/dL Estim Creat Clear Calc 115.6 Estimated GFR > 60 Random Glucose 98 (60-115) mg/dL Calcium 9.0 (8.4-10.2) mg/dL Magnesium 1.9 (1.6-2.6) mg/dL Total Bilirubin 0.3 (0.0-1.0) mg/dL Direct Bilirubin < 0.2 (0.0-0.5) mg/dL AST 25 (5-31) U/L ALT 24 (0-31) U/L Alkaline Phosphatase 70 (39-117) U/L Troponin I High Sens (<3.5-17.0) ng/L C-Reactive Protein 0.13 (< or = 0.50) mg/dL Total Protein 7.3 (6.5-8.0) g/dL Albumin 4.3 (3.5-5.0) g/dL Influenza Type A (PCR) (Negative) Influenza Type B (PCR) (Negative) RSV RNA Qual (PCR) (Negative) SARS-CoV-2 RNA (RT-PCR) (Negative) 06/02/22 06/02/22 06/02/22 Range/Units 18:31 18:31 18:31 WBC (4.8-10.8) X10*3/uL RBC (4.20-5.50) X10*6/uL Hgb (12.0-16.0) g/dl Hct (37.0-47.0) % MCV (80.0-98.0) fL MCH (27.0-33.0) pg MCHC (31.0-35.0) g/dl RDW (11.0-16.0) % Plt Count (160-400) X10*3/uL MPV (9.4-12.3) fL Immature Gran % (Auto) (0.0-0.4) % Neut % (Auto) (45-73) % Lymph % (Auto) (20-40) % Brantley % (Auto) (2-11) % Eos % (Auto) (0-4) % Baso % (Auto) (0-2) % Lymph # (Auto) (1.2-4.9) X10*3/uL Brantley # (Auto) (0.1-1.2) X10*3/uL Eos # (Auto) (0.0-0.4) X10*3/uL Baso # (Auto) (0.0-0.2) X10*3/uL Abs Immat Gran (auto) (0.00-0.03) X10*3/uL Absolute Neuts (auto) (2.0-8.3) x10*3/uL Absolute Nucleated RBC (0.0-0.012) X10*3/uL Nucleated RBC % (auto) (0.0-0.2) /100WBC ESR 17 (0-20) MM/HR PT (10.0-13.1) SEC INR (0.9-1.1) APTT (26.0-36.4) SEC Sodium (135-145) mmol/L Potassium (3.3-5.1) mmol/L Chloride (96-108) mmol/L Carbon Dioxide (22-29) mmol/L Anion Gap (12-20) BUN (9-16) mg/dL Creatinine (0.5-1.4) mg/dL Estim Creat Clear Calc Estimated GFR Random Glucose (60-115) mg/dL Calcium (8.4-10.2) mg/dL Magnesium (1.6-2.6) mg/dL Total Bilirubin (0.0-1.0) mg/dL Direct Bilirubin (0.0-0.5) mg/dL AST (5-31) U/L ALT (0-31) U/L Alkaline Phosphatase (39-117) U/L Troponin I High Sens < 3.5 (<3.5-17.0) ng/L C-Reactive Protein (< or = 0.50) mg/dL Total Protein (6.5-8.0) g/dL Albumin (3.5-5.0) g/dL Influenza Type A (PCR) NEGATIVE (Negative) Influenza Type B (PCR) NEGATIVE (Negative) RSV RNA Qual (PCR) NEGATIVE (Negative) SARS-CoV-2 RNA (RT-PCR) NEGATIVE (Negative) <Shawn Hayden MD - Last Filed: 06/02/22 21:24> Discharge Plan Discharge Clinical Impression: Bowie's palsy <LITZY Scruggs - Last Filed: 06/02/22 18:16> Patient Disposition: Home, Self-Care <LITZY Scruggs - Last Filed: 06/02/22 18:16> Instructions: Bowie Palsy (ED) <LITZY Scruggs - Last Filed: 06/02/22 18:16> Additional Instructions: Take medication as prescribed Care of the eye and facial muscles Follow-up with neurologist if not better in 2-3 weeks <LITZY Scruggs - Last Filed: 06/02/22 18:16> Prescriptions: New prednisone 20 mg tablet 60 mg PO DAILY Qty: 21 0RF valacyclovir [Valtrex] 1 gram tablet 1,000 mg PO TID Qty: 21 0RF Tears Lubricant Eye Drop 0.5 % drops 1 drp ophthalmic-Left Q2-4H PRN (Reason: dry eyes) Qty: 15 0RF No Action ibuprofen 600 mg tablet 600 mg PO Q6H PRN (Reason: pain) Qty: 30 0RF oxycodone 5 mg tablet 5 mg PO Q4-6H PRN (Reason: pain) Qty: 30 0RF ondansetron 4 mg tablet,disintegrating 4 mg PO Q8H Qty: 3 0RF albuterol sulfate 90 mcg/actuation HFA aerosol inhaler 2 puff inhalation Q4-6H PRN (Reason: shortness of breath or wheezing) Qty: 6.7 0RF prednisone 20 mg tablet 40 mg PO DAILY 5 Days Qty: 10 0RF ondansetron 4 mg tablet,disintegrating 4 mg PO Q6-8H PRN (Reason: nausea and vomiting) Qty: 14 0RF cyclobenzaprine 5 mg tablet 5 mg PO TID PRN (Reason: low back pain) 7 Days Qty: 21 0RF clonazepam 1 mg tablet 1 mg PO TID gabapentin 800 mg tablet 800 mg PO TID sertraline 100 mg tablet 150 mg PO DAILY methadone 10 mg/5 mL solution 60 mg PO DAILY <LITZY Scruggs - Last Filed: 06/02/22 18:16> Referrals: Chau Thakkar MD [Physician] - 2 weeks <LITZY Scruggs - Last Filed: 06/02/22 18:16> Interventions: ED Discharge Assessment Last Done: 06/02/22 21:22 <LITZY Scruggs - Last Filed: 06/02/22 18:16>
[2022-06-02 18:37] LABS: MANUAL DIFF FLAG NO
[2022-06-02 18:39] LABS: Basophils Percent Auto 0.3 % (0-2); Eosinophils Absolute Auto 0.2 X10*3/uL (0.0-0.4); Eosinophils Percent Auto 4.1 % (0-4); Hematocrit 35.4 % (37.0-47.0); Hemoglobin 11.9 g/dl (12.0-16.0); Imm Gran Abs Auto 0.01 X10*3/uL (0.00-0.03); Imm Gran Pct Auto 0.3 % (0.0-0.4); Lymphocytes Percent Auto 53.8 % (20-40); Mean Corpuscular HGB Conc 33.6 g/dl (31.0-35.0); Mean Corpuscular Hemoglobin 28.3 pg (27.0-33.0); Mean Corpuscular Volume 84.1 fL (80.0-98.0); Mean Platelet Volume 10.9 fL (9.4-12.3); Monocytes Absolute Auto 0.2 X10*3/uL (0.1-1.2); Monocytes Percent Auto 4.3 % (2-11); Neutrophils Absolute Auto 1.4 x10*3/uL (2.0-8.3); Neutrophils Percent Auto 37.2 % (45-73); Platelet Count 109 X10*3/uL (160-400); Red Blood Count 4.21 X10*6/uL (4.20-5.50); Red Cell Distribution Width 13.4 % (11.0-16.0); White Blood Count 3.7 X10*3/uL (4.8-10.8)
[2022-06-02 18:45] LABS: Prothrombin Time 11.8 SEC (10.0-13.1)
[2022-06-02 18:48] LABS: Partial Thromboplastin Time 35.6 SEC (26.0-36.4)
[2022-06-02 18:49] LABS: Stroke Lab Use COMPLETE
[2022-06-02 18:59] LABS: Alanine Aminotransferase 24 U/L (0-31); Albumin Level 4.3 g/dL (3.5-5.0); Alkaline Phosphatase 70 U/L (39-117); Anion Gap 10 (12-20); Aspartate Amino Transferase 25 U/L (5-31); Bilirubin Direct < 0.2 mg/dL (0.0-0.5); Bilirubin Total 0.3 mg/dL (0.0-1.0); Blood Urea Nitrogen 12 mg/dL (9-16); Carbon Dioxide 24 mmol/L (22-29); Chloride 110 mmol/L (96-108); Creatinine Clr Calc Pharmacy 115.6; Estimated Glomerular Filt Rate > 60; Glucose Random 98 mg/dL (60-115); Magnesium 1.9 mg/dL (1.6-2.6); Potassium 3.8 mmol/L (3.3-5.1); Sodium 140 mmol/L (135-145); Total Protein 7.3 g/dL (6.5-8.0)
[2022-06-02 19:05] LABS: Troponin-I High Sensitivity < 3.5 ng/L (<3.5-17.0)
[2022-06-02 19:21] LABS: C Reactive Protein 0.13 mg/dL (< or = 0.50)
[2022-06-02 19:22] LABS: Influenza A PCR NEGATIVE (Negative); Influenza B PCR NEGATIVE (Negative); Resp Syncy Virus RNA Qual PCR NEGATIVE (Negative); SARS COV2 PCR INHOUSE NEGATIVE (Negative)
[2022-06-02 19:38] LABS: Erythrocyte Sedimentation Rate 17 MM/HR (0-20)
[2022-06-02] MEDS: valACYclovir HCL 1,000 MG TABLET 1000 MG PO (21:18)
[2022-06-02] MEDS: predniSONE 20 MG TABLET 60 MG PO (21:18)
[2022-06-02 21:19] VITALS: BP 102/73; PULSE 87; RESP 20; O2SAT 97
[2022-06-04 09:23] LABS: Lyme Abs Screen <0.90 index
== END 2022-06-02 21:22 | disposition home or self-care (01) ==
PROVIDERS: Physician Assistant; Emergency Provider Internal Medicine; PCP Internal Medicine
DX: G51.0 Bell's palsy (principal); Z20.828 Contact with and (suspected) exposure to other viral communicable diseases; B19.20 Unspecified viral hepatitis C without hepatic coma; F17.200 Nicotine dependence, unspecified, uncomplicated; F11.20 Opioid dependence, uncomplicated; Z79.899 Other long term (current) drug therapy
CPT/HCPCS: 0241U; 36415; 70450; 80048; 80076; 83735; 84484; 85025; 85610; 85652; 85730; 86140; 86617; 86618; 93005; 99282; 99284

== ENCOUNTER 2023-07-31 16:35 | Emergency (ER) | payer MEDICAID, SELFPAY ==
--- NOTE | ~2023-07-31 | XR_ITS ---
EXAMINATION: XR LUMBOSACRAL SPINE CLINICAL INFORMATION: Fall, back pain COMPARISON: None available. TECHNIQUE: Three views of the lumbosacral spine. FINDINGS: The vertebral bodies and posterior elements are normal. The disc spaces are preserved and the vertebral alignment is normal. The paraspinal soft tissues are normal. XR/XR lumbar spine 2-3V IMPRESSION: Unremarkable examination.
[2023-07-31 17:04] VITALS: BP 121/73; PULSE 88; RESP 16; TEMP 36.1; O2SAT 95; BMI 33.6
--- NOTE | 2023-07-31 17:08 | ED.GENADULT ---
HPI - General Adult General Chief complaint: Back Pain/Injury Stated complaint: lower back pain,fell Time Seen by Provider: 07/31/23 17:36 Source: patient, RN notes reviewed and old records reviewed Mode of arrival: ambulatory Limitations: no limitations History of Present Illness HPI narrative: 38-year-old female presents for evaluation low back pain. Patient reports the pain started the day after ?I was using a foot swing for 3 hours. ? She also reports slipping and falling yesterday Denies head injury Her pain radiates down into her legs occasionally Her pain is worse with movement She has been using ibuprofen with some relief of her symptoms No other complaints or concerns at this time Related Data Home Medications Medication Instructions Recorded Confirmed clonazepam 1 mg tablet 1 mg PO TID 05/01/20 05/08/20 gabapentin 800 mg tablet 800 mg PO TID 05/01/20 05/08/20 methadone 10 mg/5 mL oral solution 60 mg PO DAILY 05/01/20 05/08/20 sertraline 100 mg tablet 150 mg PO DAILY 05/01/20 05/08/20 Previous Rx's Medication Instructions Recorded ibuprofen 600 mg tablet 600 mg PO Q6H PRN pain #30 tabs 05/14/20 oxycodone 5 mg tablet 5 mg PO Q4-6H PRN pain #30 tabs 05/14/20 ondansetron 4 mg disintegrating 4 mg PO Q6-8H PRN nausea and 07/02/21 tablet vomiting #14 tabs albuterol sulfate 90 mcg/actuation 2 puff inhalation Q4-6H PRN 09/09/21 aerosol inhaler shortness of breath or wheezing #6.7 grams ondansetron 4 mg disintegrating 4 mg PO Q8H #3 tabs 09/09/21 tablet prednisone 20 mg tablet 40 mg (2 x 20 mg) PO DAILY 5 days 09/09/21 #10 tabs cyclobenzaprine 5 mg tablet 5 mg PO TID PRN low back pain 7 03/16/22 days #21 tabs artificial tears(hypromellose) 0.5 1 drp ophthalmic-Left Q2-4H PRN 06/02/22 % eye drops (Tears Lubricant) dry eyes #15 mL prednisone 20 mg tablet 60 mg (3 x 20 mg) PO DAILY #21 tabs 06/02/22 valacyclovir 1 gram tablet 1,000 mg PO TID #21 tabs 06/02/22 (Valtrex) cyclobenzaprine 10 mg tablet 10 mg PO TID PRN muscle spasm #15 07/31/23 tabs dexamethasone 4 mg tablet 4 mg PO BID #6 tabs 07/31/23 Allergies Allergy/AdvReac Type Severity Reaction Status Date / Time No Known Allergies Allergy Verified 07/31/23 17:09 Review of Systems Musculoskeletal: Musculoskeletal: Reports back pain, Denies muscle weakness, Denies numbness, Reports radiating pain into limb and Denies tingling Neurologic: Denies numbness and Denies tingling PMFSH Past Medical History Medical History Anxiety and depression Hepatitis C History of intravenous drug abuse Lab test negative for COVID-19 virus Lab test positive for detection of COVID-19 virus Obesity Smoker Supraumbilical hernia Surgical History History of section (~2006) History of umbilical hernia repair (~09/29/17) Social History Social History Are you a primary hearing care practitioner to a significant other at home: Yes (children-age 2 yrs / age 7 months) Do you presently have visiting nurse or other home services: No Alcohol intake: unknown Patient Tobacco Use Status: Current everyday Tobacco user Years Smoked: 20 Substance Use Type: Former Substance User Physical Exam ED Vital Signs: Vital Signs - 24 hr 07/31/23 17:04 Temperature 97 F Pulse Rate 88 Respiratory Rate 16 Blood Pressure 121/73 Pulse Oximetry 95 Oxygen Delivery Method Room Air BMI result Body Mass Index 33.6 Const General: healthy appearing, comfortable, no acute distress, alert and awake Nutritional Appearance: well nourished Orientation/consciousness: patient oriented x3 HENMT Head: Yes normocephalic and Yes atraumatic Eyes Eyelids: Yes eyelids normal Conjunctivae: conjunctivae normal Sclerae: sclerae normal Corneas: corneas normal Pupils: Equal, round and reactive pupils present EOM: EOMs intact bilaterally Neck Neck: Yes full ROM Resp Effort & Inspection: normal respiratory effort, able to speak in complete sentences, no audible wheezes and not labored Auscultation: clear to auscultation bilaterally Cardio Rate: regular rate Rhythm: regular rhythm GI Inspection: No distended Palpation (GI): Soft to palpation, not firm, nontender, no guarding and not rigid Auscultation: normoactive bowel sounds Back/Spine/Pelvis Other: Patient has tenderness across the lumbar sacral region. No focal vertebral tenderness. No step-offs or deformities. Straight leg raise positive. Skin General skin exam: no rashes or lesions noted and elasticity normal Neuro General: patient oriented x3 Cranial nerves: Yes CN's II-XII intact bilaterally, Yes Equal, round and reactive pupils present and Yes Bilaterally intact EOM present Cognition (Neuro): normal cognition Extrem Other: Moving all extremities well without any obvious deformities Course Course Course Narrative: RME- 38 year old female presents for evaluation of lower back pain that started 2 days ago. She does report falling yesterday Medical Decision Making Medical Decision Making MDM Narrative: 38-year-old female presents for evaluation lower back pain. Her pain started 2 days ago and then she fell yesterday. Plan for x-ray due to the fall. There are no warning signs for cauda equina syndrome. Differential Diagnosis Differential Diagnoses: The differential diagnosis associated with the presentation includes Low back pain Sciatica Radiculopathy Herniated disc Independent Interpretation I performed an independent interpretation of an: Plain X-Ray (No obvious fracture) Radiology Impression Discussion of test interpretation with radiology: I have reviewed the radiologist's reading. (Unremarkable examination) Discharge Plan Discharge Clinical Impression: Lumbar radiculopathy Patient Disposition: Home, Self-Care Instructions: Acute Low Back Pain (ED) Additional Instructions: Your x-ray does not show any fractures You likely have a pinched nerve Take dexamethasone twice daily for the next 3 days. Take cyclobenzaprine as needed for muscle spasms This may make you sleepy, did not drink alcohol or drive after taking it Follow-up with your primary doctor Prescriptions: New dexamethasone 4 mg tablet 4 mg PO BID Qty: 6 0RF cyclobenzaprine 10 mg tablet 10 mg PO TID PRN (Reason: muscle spasm) Qty: 15 0RF No Action ibuprofen 600 mg tablet 600 mg PO Q6H PRN (Reason: pain) Qty: 30 0RF oxycodone 5 mg tablet 5 mg PO Q4-6H PRN (Reason: pain) Qty: 30 0RF ondansetron 4 mg tablet,disintegrating 4 mg PO Q8H Qty: 3 0RF albuterol sulfate 90 mcg/actuation HFA aerosol inhaler 2 puff inhalation Q4-6H PRN (Reason: shortness of breath or wheezing) Qty: 6.7 0RF prednisone 20 mg tablet 40 mg PO DAILY 5 Days Qty: 10 0RF ondansetron 4 mg tablet,disintegrating 4 mg PO Q6-8H PRN (Reason: nausea and vomiting) Qty: 14 0RF cyclobenzaprine 5 mg tablet 5 mg PO TID PRN (Reason: low back pain) 7 Days Qty: 21 0RF prednisone 20 mg tablet 60 mg PO DAILY Qty: 21 0RF valacyclovir [Valtrex] 1 gram tablet 1,000 mg PO TID Qty: 21 0RF Tears Lubricant Eye Drop 0.5 % drops 1 drp ophthalmic-Left Q2-4H PRN (Reason: dry eyes) Qty: 15 0RF clonazepam 1 mg tablet 1 mg PO TID gabapentin 800 mg tablet 800 mg PO TID sertraline 100 mg tablet 150 mg PO DAILY methadone 10 mg/5 mL solution 60 mg PO DAILY Stand Alone Forms: Work/School Release
== END 2023-07-31 17:50 | disposition home or self-care (01) ==
LOC: HO.ED 17:49
PROVIDERS: Emergency Provider Emergency Medicine Emergency Medical Services; PCP Internal Medicine
DX: M54.16 Radiculopathy, lumbar region (principal); M54.50 Low back pain, unspecified
CPT/HCPCS: 72100; 99282; 99283

== ENCOUNTER 2024-12-20 13:42 | Outpatient (REF) | payer MEDICAID, SELFPAY | END 2024-12-20 13:43 | disposition home or self-care (01) | LOC: HO.HHCLNP 13:42 | PROVIDERS: Visit Provider Internal Medicine | DX: Z51.81 Encounter for therapeutic drug level monitoring (principal); Z79.899 Other long term (current) drug therapy | CPT/HCPCS: 36415; 80353 ==

== ENCOUNTER 2025-02-13 16:53 | Outpatient (REF) | payer MEDICAID, SELFPAY ==
--- OUTSIDE RECORDS SUMMARY | 2025-02-13 13:30 | XMS_ITS | Encounter Summary ---
Author Organization [employer] Address [address] [facility] 7t [place] [address] Care Team Providers Care Hydrology Technician Name Role Phone Nela Murillo MD Primary Care Provider + Jignesh Rucker RN Unavailable [phone] Ayesha Alaniz Unavailable Reason for Visit * Reason Comments INFANTRY INDIRECT FIRE CREWMEMBER RV Encounter Details Date Type Department Care Team (Latest Contact Info) Description 02/13/2025 1:30 PM EDT Clinical [address] [facility] [address] [place] [address] Iesha Adams RN Long-term current use of benzodiazepine (Primary Dx) Social History Tobacco Use Types Packs/Day Years Used Date Smoking Tobacco: Every Day Cigarettes Smokeless Tobacco: Never Alcohol Use Standard Drinks/Week Comments Never 0 (1 standard drink = 0.6 oz pur e alcohol) Housing Stability Answer Date Recorded What is your housing situation today? I have stefanie arthur 01/02/[address] you li ve. Do you have problems with any of the following? None of the above 01/02/2025 Food Insecurity Answer Date Recorded Within the past 12 months, y ou worried that your food would run out before you got money to buy more: Sometimes True 2024 Within the past 12 months,th e food you bought just didn't last and you didn't have enough money to get more: Sometimes True 01/02/2025 Transportation Answer Date Recorded In the past 12 months, has l ack of transportation kept you from medical appts, meetings, work or from getting things needed for daily living? No;Yes, it has kept me from medical appointments or getting medications. 01/02/2025 Utilities Answer Date Recorded In the past 12 months, has t he electric, gas, oil or water company threatened to shut off services in your home? No 01/02/2025 Internet Access Answer Date Recorded Internet Access Q1 Yes 01/02/2025 Internet Access Q2 Not on file 01/02/2025 Comments No Sex and Gender Information Value Date Recorded Sex Assigned at Female 03/30/2022 10:30 AM EDT Legal Sex Female 10:30 AM EDT Gender Identity Female 03/30/2022 10:30 AM EDT Sexual Orientation Straight 09/16/2022 5: 52 PM EDT documented as of this encounter Progress Notes * Iesha Adams RN - 02/13/2025 1:30 PM EDT SUBJECTIVE: Maria Del Rosario Salcedo is a 39 y.o. 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 The patient last took Clonazepam (Klonopin) on: 02/13/2025 Medication effective: Yes Sleep habits: ok Therapist: No, stated she missed call when reached out d/t phone number shows up as spam. Pt weepy, tired appearing. Pt's father was in a major MVA recently in [place]. She stated he likely wont be able to walk again. She admits to increased marijuana use. Stated that she did purchase marijuana from someone she didn't know while in [place] with her father. OBJECTIVE: SOCIAL SECURITY SPECIALIST checked: 02/13/2025 Pill count completed for Clonazepam (Klonopin), count today is 6 , anticipated count should be 3, this is as expected. Last PCP visit: 10/16/2024 Controlled substance agreement signed: Controlled Substance Agreement 12/20/2024 INFANTRY INDIRECT FIRE CREWMEMBER Tier: 1 Current Medications[1] Smoking status: Yes, 4-5 cigarettes daily ETOH use: Denies Illicit substances: Denies Marijuana use: Yes , multiple times a day. Marijuana card: Yes , Marijuana Acquired from: Dispensary and street Lab Results Component Value Date POCTHC Positive 02/13/2025 POCCOCAINEUR Positive (A) 02/13/2025 POCOPIATEUR Negative 02/13/2025 DOAUR Negative 02/13/2025 POCAMPHETAMI Negative 02/13/2025 POCBENZODIUR Positive 02/13/2025 POCBARBSCRN Negative 02/13/2025 POCMETHADOUR Positive 02/13/2025 POCBUPSCRN Negative 02/13/2025 POCTCAUR Positive 02/13/2025 POCMDMAUR Negative 02/13/2025 POCOXYCODONE Negative 02/13/2025 POCPHENCYCUR Negative 02/13/2025 PROPOXUR Negative 02/13/2025 FENTANYLURIN Negative 02/13/2025 Reviewed UTOX results. Explained I would send urine out for AFTAB confirmation. Reminded patient she recently had pos AFTAB in her urine back in November and PCP at that time said if happened again she wouldstop prescribing Clonazepam. ASSESSMENT: Encounter Diagnosis Name Primary? Long-term current use of benzodiazepine Yes PLAN: Information on acupuncture given: Previously discussed Narcan education provided: Previously discussed Narcan prescription: active Will update PCP with UTOX results and send Clonazepam refill request to PCP. Reached out to , setup Tele consult with them for patient today at 4pm. Maria Del Rosario Salcedo will continue taking medication as prescribed and follow up at the next [facility] visit or sooner if needed. Maria Del Rosario Salcedo has verbalized understanding of care plan. Future Appointments Date Time Provider Department Center 02/13/2025 1:30 PM Iesha Adams RN [facility] 02/13/2025 4:00 PM Anamaria Davis [facility] 02/28/2025 9:30 AM Iesha Adams RN [facility] Iesha Adams RN [1] Current Outpatient Medications: clonazePAM (KlonoPIN) 1 MG tablet, Take 1 tablet (1 mg) by mouth 2 times daily for 14 days. Do not start before February 02, 2025., Disp: 28 tablet, Rfl: 0 cloNIDine (Catapres) 0.1 MG tablet, TAKE 1 TABLET BY MOUTH DAILY, Disp: 30 tablet, Rfl: 1 cyclobenzaprine (Flexeril) 10 MG tablet, TAKE 1 TABLET BY MOUTH TWICE DAILY, Disp: 60 tablet, Rfl: 1 fluticasone (Flonase) 50 MCG/ACT nasal spray, SHAKE LIQUID AND USE 1 TO 2 SPRAYS IN EACH NOSTRIL EVERY DAY NEEDED, Disp: 48 g, Rfl: 0 gabapentin (Neurontin) 800 MG tablet, TAKE 1 TABLET BY MOUTH THREE TIMES DAILY, Disp: 90 tablet, Rfl: 3 meloxicam (Mobic) 15 MG tablet, Take 1 tablet (15 mg) by mouth Once per day., Disp: 30 tablet, Rfl:0 methadone (Dolophine) 10 MG/ML solution, 44mg daily, Disp: , Rfl: naloxone (Narcan) 4 mg/0.1 mL nasal spray, Administer 1 spray (4 mg) into affected nostril(s) if needed for opioid reversal. May repeat every 2-3 minutes if needed, alternating nostrils, until medical assistance becomes available., Disp: 2 each, Rfl: 3 nicotine polacrilex (Nicorette) 4 MG gum, Chew 1 each (4 mg) if needed for smoking cessation., Disp: 100 each, Rfl: 0 polyethylene glycol, PEG, 3350 (Glycolax) 17 GM/SCOOP powder, MIX 17 GRAMS(1 CAPFUL) INTO 8 OUNCES OF WATER, JUICE, SODA, COFFEE AND TAKE ONCE A DAY, Disp: 238 g, Rfl: 3 prazosin (Minipress) 1 MG capsule, TAKE 2 CAPSULES(2 MG) BY MOUTH AT BEDTIME, Disp: 60 capsule, Rfl: 1 predniSONE (Deltasone) 10 MG tablet, Take by oral route daily. 6 tabs (=60mg) on day 1-2; 5 tabs (=50mg) on day 3-4; 4 tabs (=40mg) on day 5-6; 3 tabs (=30mg) on day 7-8; 2 tabs (=20mg) on day 9-10; 1 tab on day 11-12; 1/2 tab on day 13- 14, Disp: 43 tablet, Rfl: 0 sertraline (Zoloft) 50 MG tablet, TAKE 3 TABLETS(150 MG) BY MOUTH DAILY, Disp: 90 tablet, Rfl: 1 topiramate 50 MG tablet, TAKE 1 TABLET BY MOUTH TWICE DAILY, Disp: 180 tablet, Rfl: 1 documented in this encounter Plan of Treatment Upcoming Encounters Date Type Department Care Team (Late st Contact Info) Description 02/28/2025 9:30 AM EDT Clinical Support [facility] [address] [place] [address] Iesha Adams, RN Scheduled Orders Name Type Priority Associated Diagnoses Orde r Schedule Drug Monitoring, Cocaine Metabolite, Quantitative, Urine Lab Routine Long-term current use of benzodiazepine Ordered: 02/13/2025 documented as of this encounter Procedures Procedure Name Priority Date/Time Associated Diagnosis Comments POCT BERTO-14 URINE DRUG SCREEN Routine 02/13/2025 9:02 AM EDT Long-term current use of benzodiazepine documented in this encounter Results * (ABNORMAL) POCT BERTO-14 Urine Drug Screen (02/13/2025 9:02 AM EDT) THC Positive Negative Cocaine Screen, Urine Positive(A) Negative Opiate Screen, Urine Negative Negative Methamphetamine Screen Urine Negative Negative Amphetamine Screen, Urine Negative Negative Benzodiazepines Screen, Urine Positive Negative Barbiturate Screen, Urine Negative Negative Methadone Screen, Urine Positive Negative Buprenophine Screen, Urine Negative Negative TCA, Urine Positive Negative MDMA Urine Negative Negative ng/mL Oxycodone Screen, Urine Negative Negative Phencyclidine (PCP), Urine Negative Negative Propoxyphene, Urine Negative Negative Fentanyl, Urine Negative Negative Urine Urine specimen obtained by clean catch procedure / Unknown 02/13/2025 9:02 AM EDT Narrative Iesha Adams RN - 02/13/2025 9:02 AM EDT UTOX cup Lot#[id number] Exp. 03/06/26 Internal Pass Control us Nela Murillo MD POINT OF CARE TEST ENTER /EDIT ORDERABLES Final Result documented in this encounter Visit Diagnoses Diagnosis Long-term current use of benzodiazepine- Primary documented in this encounter Care Teams Hydrology Technician Relationship Specialty Start Date End Date Nela Murillo MD [address] [place] [address] PCP - General Family Medicine 05/31/18 Jignesh Rucker, RN [address] [place] [address] Registered Nurse Family Medicine 01/02/25 Ayesha Alaniz 01/02/25 documented as of this encounter
--- OUTSIDE RECORDS SUMMARY | 2025-02-13 19:12 | XMS_ITS | Encounter Summary ---
Author Organization [employer] Address [address] [place] [address] 7 [place] [address] Care Team Providers Care Circular Sawyer Helper Name Role Phone Nela Murillo MD Primary Care Provider + Jignesh Rucker RN Unavailable [phone] Ayesha Alaniz Unavailable Encounter Details Date Type Department Care Team (Late Contact Info) Description 12/18/2022 Telephone [facility] [address] [place] [address] [phone] Nela Murillo MD [address] [place] [address] [phone] Social History Tobacco Use Types Packs/Day Years Used Date Smoking Tobacco: Every Day Cigarettes Smokeless Tobacco: Never Alcohol Use Standard Drinks/Week Comments Never 0 (1 standard drink = 0.6 oz pur e alcohol) Comments No Sex and Gender Information Value Date Recorded Sex Assigned at Female 03/30/2022 10:30 AM EDT Legal Sex Female 10:30 AM EDT Gender Identity Female 03/30/2022 10:30 AM EDT Sexual Orientation Straight 09/16/2022 5: 52 PM EDT documented as of this encounter Plan of Treatment Upcoming Encounters Date Type Department Care Team (Late Contact Info) Description 02/28/2025 9:30 AM EDT Clinical Support [facility] [address] [place] [address] [phone] Iesha Adams RN documented as of this encounter Visit Diagnoses Not on filedocumented in this encounter Care Teams Circular Sawyer Helper Relationship Specialty Start Date End Date Nela Murillo MD [address] [place] [address] PCP - General Family Medicine 05/31/18 Jignesh Rucker, RN [address] [place] [address] Registered Nurse Family Medicine 01/02/25 Ayesha Alaniz 01/02/25 documented as of this encounter
--- OUTSIDE RECORDS SUMMARY | 2025-02-13 19:12 | XMS_ITS | Encounter Summary ---
Author Organization [employer] Address [address] [place] [address] 7t [place] [address] Care Team Providers Care Skidder Lever Operator Name Role Phone Nela Murillo MD Primary Care Provider + Jignesh Rucker RN Unavailable [phone] Ayesha Alaniz Unavailable Reason for Visit * Reason Onset Date Comments Appointment Request 08/28/2024 Encounter Details Date Type Department Care Team ([facility] st Contact Info) Description 08/28/2024 Telephone [facility] [address] [place], [place] [phone] Nela Murillo MD [address] [place], [place] [phone] Appointment Request Social History Tobacco Use Types Packs/Day Years [...] PM EDT documented as of this encounter Miscellaneous Notes * Telephone Encounter - Vinicio Ash - 08/28/2024 1:18 PM EDT Tc from pt requesting to R/s Appt from 08/16/24. Credit Reporter advised pt of Availability and advised will send a message. Contact pt at [phone] documented in this encounter Plan of Treatment Upcoming Encounters Date Type Department Care Team ([facility] st Contact Info) Description 02/28/2025 9:30 AM EDT Clinical Support [facility] [address] [place] [address] Iesha Adams, BINDU documented as of this encounter Visit Diagnoses Not on filedocumented in this encounter Care Teams Skidder Lever Operator Relationship Specialty Start Date End Date Nela Murillo MD [address] [place] [address] PCP - General Family Medicine 05/31/18 Jignesh Rucker, BINDU [address] [place] [address] Registered Nurse Family Medicine 01/02/25 Ayesha Alaniz 01/02/25 documented as of this encounter
--- OUTSIDE RECORDS SUMMARY | 2025-02-13 19:12 | XMS_ITS | Encounter Summary ---
Author Organization [employer] Address [address] [place] [address] 7 [place] [address] Care Team Providers Care Precinct Police Captain Name Role Phone Nela Murillo MD Primary Care Provider + Jignesh Rucker RN Unavailable [phone] Ayesha Alaniz Unavailable Encounter Details Date Type Department Care Team (Late Contact Info) Description 12/15/2022 Orders Only [facility] [address] [place] [phone] Sarah Cardoza LPN Social History Tobacco Use Types Packs/Day Years [...] Description 02/28/2025 9:30 AM EDT Clinical Support [facility] [address] [place] [address] [phone] Iesha Adams RN documented as of this encounter Visit Diagnoses Not on filedocumented in this encounter Care Teams Precinct Police Captain Relationship Specialty Start Date End Date Nela Murillo MD [address] [place] [address] PCP - General Family Medicine 05/31/18 Jignesh Rucker, RN [address] [facility] [place] [address] Registered Nurse Family Medicine 01/02/25 Ayesha Alaniz 01/02/25 documented as of this encounter
--- OUTSIDE RECORDS SUMMARY | 2025-02-13 19:12 | XMS_ITS | Encounter Summary ---
Author Organization [employer] Address [address] 7[address] [place] [address] Care Team Providers Care Machine Coremaker Name Role Phone Nela Murillo MD Primary Care Provider + Jignesh Rucker RN Unavailable [phone] Ayesha Alaniz Unavailable Encounter Details Date Type Department Care Team (Latest Contact Info) Description 02/13/2025 Travel Social History Tobacco Use Types Packs/Day Years [...] Description 02/28/2025 9:30 AM EDT Clinical Support [facility] [address] [place] [address] Iesha Adams, BINDU documented as of this encounter Visit Diagnoses Not on filedocumented in this encounter Care Teams Machine Coremaker Relationship Specialty Start Date End Date Nela Murillo MD [address] [place] [address] PCP - General Family Medicine 05/31/18 Jignesh Rucker, RN [address] [place] [address] Registered Nurse Family Medicine 01/02/25 Ayesha Alaniz 01/02/25 documented as of this encounter
--- OUTSIDE RECORDS SUMMARY | 2025-02-13 19:12 | XMS_ITS | Encounter Summary ---
Author Organization [employer] Address [address] [place] [address] 7 [place] [address] Care Team Providers Care Multimedia Teacher Name Role Phone Nela Murillo MD Primary Care Provider + Jignesh Rucker RN Unavailable [phone] Ayesha Alaniz Unavailable Reason for Visit * Reason Onset Date Comments Med Refill 12/14/2024 Encounter Details Date Type Department Care Team (Late st Contact Info) Description 12/14/2024 Refill [facility] [address] [place], [place] [phone] Nela Murillo MD [address] [place] [address] Social History Tobacco Use Types Packs/Day Years [...] encounter Miscellaneous Notes * Telephone Encounter - Iesha Adams RN - 12/14/2024 11:40 AM EDT Dupllicate request. Refill not due until 12/16/24 and request was forwarded to PCP for decision on 12/13/24. documented in this encounter Plan of Treatment Upcoming Encounters Date Type Department Care Team (Late st Contact Info) Description 02/28/2025 9:30 AM EDT Clinical Support [facility] [address] [place] [phone] Iesha Adams, BINDU documented as of this encounter Visit Diagnoses Not on filedocumented in this encounter Care Teams Multimedia Teacher Relationship Specialty Start Date End Date Nela Murillo MD [address] [place] [address] PCP - General Family Medicine 05/31/18 Jignesh Rucker, BINDU [address] [place] [address] Registered Nurse Family Medicine 01/02/25 Ayesha Alaniz 01/02/25 documented as of this encounter
--- OUTSIDE RECORDS SUMMARY | 2025-02-13 19:12 | XMS_ITS | Encounter Summary ---
Author Organization [employer] Address [address] [place] [address] [address] [place] [address] Care Team Providers Care Special Forces Specialist Name Role Phone Nela Murillo MD Primary Care Provider + Jignesh Rucker RN Unavailable [phone] Ayesha Alaniz Unavailable Reason for Visit * Reason Comments Med Refill Encounter Details Date Type Department Care Team (Late Contact Info) Description 03/15/2023 Refill [facility] [address] [place] [address] [phone] Nela Murillo MD [address] [place], [place] [phone] Chronic pansinusitis Social History Tobacco Use Types Packs/Day Years [...] 10:30 AM EDT Sexual Orientation Straight 09/16/2022 5 :52 PM EDT documented as of this encounter Plan of Treatment Upcoming Encounters Date Type Department Care Team (Late Contact Info) Description 02/28/2025 9:30 AM EDT Clinical Support [facility] [address] [place], [place] [phone] Iesha Adams RN documented as of this encounter Visit Diagnoses Diagnosis Chronic pansinusitis Other chronic sinusitis documented in this encounter Care Teams Special Forces Specialist Relationship Specialty Start Date End Date Nela Murillo MD [address] [place] [address] PCP - General Family Medicine 05/31/18 Jignesh Rucker, BINDU [address] [place] [address] Registered Nurse Family Medicine 01/02/25 Ayesha Alaniz 01/02/25 documented as of this encounter
--- OUTSIDE RECORDS SUMMARY | 2025-02-13 19:12 | XMS_ITS ---
Author Organization [employer] Address [address] [facility] 7 [place] [address] Care Team Providers Care Hotel Supplies Salesperson Name Role Phone Nela Murillo MD Primary Care Provider + Jignesh Rucker RN Unavailable Ayesha Alaniz Unavailable CM Complex Status:Outreach In Progress (Enrolling) Start date:01/02/2025 Enrollment reason:Referred by provider Overview Provider Referral- Patient with history of bipolar disorder, awaiting on mental health referral, multiple issues with DCF, substance abuse, please help her with appointment and medication compliance,assist her on her search for housing Case Team Name Relationship Phone Jignesh Rucker RN(Responsible Staff) Registered Kyler patel [phone] Continued Care and Services Coordination
--- OUTSIDE RECORDS SUMMARY | 2025-02-13 19:12 | XMS_ITS ---
Author Organization [employer] Address [address] [place] [address] 7 [place] [address] Care Team Providers Care Licensed Mental Health Professional Name Role Phone Nela Murillo MD Primary Care Provider + Jignesh Rucker RN Unavailable [phone] Ayesha Alaniz Unavailable CHW Complex Status:Enrolled (Active) Start date:01/02/2025 Enrollment date:01/02/2025 Enrollment reason:Referred by provider Overview Provider Referral- Patient with history of bipolar disorder, awaiting on mental health referral, multiple issues with DCF, substance abuse, please help her with appointment and medication compliance,assist her on her search for housing Case Team Name Relationship Phone Ayesha Alaniz(Responsible Staff) [phone] Continued Care and Services Coordination
--- OUTSIDE RECORDS SUMMARY | 2025-02-13 19:12 | XMS_ITS | Encounter Summary ---
Author Organization [employer] Address [address] [facility] 7t [place] [address] Care Team Providers Care Director Quality Systems Name Role Phone Nela Murillo MD Primary Care Provider + Jignesh Rucker RN Unavailable [phone] Ayesha Alaniz Unavailable Reason for Visit * Reason Onset Date Comments UTOX Pos AFTAB 02/13/2025 Med Refill 02/13/2025 Encounter Details Date Type Department Care Team (Late st Contact Info) Description 02/13/2025 Refill [facility] [address] [place] [address] Iesha Adams RN Anxiety Social History Tobacco Use Types Packs/Day Years Used Date Smoking Tobacco: Every Day Cigarettes Smokeless Tobacco: Never Alcohol Use Standard Drinks/Week Comments Never 0 (1 standard drink = 0.6 oz pur e alcohol) Housing Stability Answer Date Recorded What is your housing situation today? I have stefanieandrea arthur 01/02/[address] you [...] Telephone Encounter - Iesha Adams RN - 02/13/2025 9:07 AM EDT Pt had STEM CRUSHER RV appt today Pt weepy, tired appearing. Pt's father was in a major MVA recently in [place]. She stated he likely wont be able to walk again. She admits to increased marijuana use. Stated that she did purchase marijuana from someone she didn't know while in [place] with her father. UTOX Pos AFTAB, sent out for confirmation. 12/28/24 UTOX confirmation returned Pos AFTAB as well. Scheduled for phone consult today at 4pm, d/t above. Scheduled for return STEM CRUSHER appt 02/28/25. documented in this encounter Plan of Treatment Upcoming Encounters Date Type Department Care Team (Late st Contact Info) Description 02/28/2025 9:30 AM EDT Clinical Support [facility] [address] [place] [address] Iesha Adams, RN documented as of this encounter Visit Diagnoses Diagnosis Anxiety Anxiety state, unspecified documented in this encounter Care Teams Director Quality Systems Relationship Specialty Start Date End Date Nela Murillo MD [address] [place] [address] PCP - General Family Medicine 05/31/18 Jignesh Rucker, RN [address] [place] [address] Registered Nurse Family Medicine 01/02/25 Ayesha Alaniz 01/02/25 documented as of this encounter
--- OUTSIDE RECORDS SUMMARY | 2025-02-13 19:12 | XMS_ITS | Encounter Summary ---
Author Organization [employer] Address [address] [place] [address] 7t [place] [address] Care Team Providers Care Block Cableman Name Role Phone Nela Murillo MD Primary Care Provider + Jignesh Rucker RN Unavailable [phone] Ayesha Alaniz Unavailable Reason for Visit * Reason Onset Date Comments Med Refill 12/06/2024 Encounter Details Date Type Department Care Team (Late st Contact Info) Description 12/06/2024 Telephone [facility] [address] [place], [place] [phone] Nela Murillo MD [address] [place], [place] [phone] Med Refill Social History Tobacco Use Types Packs/Day Years [...] encounter Miscellaneous Notes * Telephone Encounter - Sheila White LPN - 12/06/2024 11:45 AM EDT Medication was sent to [id number] on 11/10/24 #30 with 1 refill. * Telephone Encounter - Franck Beebe - 12/06/2024 11:40 AM EDT TC from pt requesting medication refill. Medications needing refill : cloNIDine (Catapres) 0.1 MG tablet To be sent to: [id number] - [place], [place] - [address] [facility] documented in this encounter Plan of Treatment Upcoming Encounters Date Type Department Care Team (Late st Contact Info) Description 02/28/2025 9:30 AM EDT Clinical Support [facility] MED[facility]INE [address] [place] [phone] Iesha Adams RN documented as of this encounter Visit Diagnoses Not on filedocumented in this encounter Care Teams Block Cableman Relationship Specialty Start Date End Date Nela Murillo MD [address] [place] [address] PCP - General Family Medicine 05/31/18 Jignesh Rucker, RN [address] [place] [address] Registered Nurse Family Medicine 01/02/25 Ayesha Alaniz 01/02/25 documented as of this encounter
--- OUTSIDE RECORDS SUMMARY | 2025-02-13 19:12 | XMS_ITS | Encounter Summary ---
Author Organization [employer] Address [address] [place] [address] 7t [place] [address] Care Team Providers Care Paper Machine Operator Name Role Phone Nela Murillo MD Primary Care Provider + Jignesh Rucker RN Unavailable [phone] Ayesha Alaniz Unavailable Reason for Visit * Reason Onset Date Comments Med Refill 09/11/2024 Encounter Details Date Type Department Care Team (Late st Contact Info) Description 09/11/2024 Telephone [facility] [address] [place], [place] [phone] Nela Murillo MD [address] [place], [place] [phone] Med Refill Social History Tobacco Use Types [...] Telephone Encounter - Sheila White LPN - 09/11/2024 8:38 AM EDT Medication was sent to [facility] #[id number] on 08/07/24 with 3 refills. * Telephone Encounter - Vinicio Ash - 09/11/2024 8:29 AM EDT TC from pt requesting medication refill. Medications needing refill : gabapentin (Neurontin) 800 MG tablet To be sent to: [id number] - [place], [place] - [address] [facility] documented in this encounter Plan of Treatment Upcoming Encounters Date Type Department Care Team (Late st Contact Info) Description 02/28/2025 9:30 AM EDT Clinical Support [facility] [address] [place] [address] Iesha Adams RN documented as of this encounter Visit Diagnoses Not on filedocumented in this encounter Care Teams Paper Machine Operator Relationship Specialty Start Date End Date Nela Murillo MD [address] [place] [phone] PCP - General Family Medicine 05/31/18 Jignesh Rucker, RN [address] [place] [phone] Registered Nurse Family Medicine 01/02/25 Ayesha Alaniz 01/02/25 documented as of this encounter
--- OUTSIDE RECORDS SUMMARY | 2025-02-13 19:12 | XMS_ITS | Encounter Summary ---
Author Organization [employer] Address [address] [place] [address] 7 [place] [address] Care Team Providers Care Php Engineer Name Role Phone Nela Murillo MD Primary Care Provider + Jignesh Rucker RN Unavailable [phone] Ayesha Alaniz Unavailable Reason for Visit * Reason Onset Date Comments Med Refill 12/06/2024 Encounter Details Date Type Department Care Team (Late st Contact Info) Description 12/06/2024 Telephone [facility] [address] [place], [place] [phone] Nela Murillo MD [address] [place], [place] [phone] Med Refill Social History Tobacco Use Types [...] Encounter - Sheila White LPN - 12/06/2024 11:44 AM EDT Medication pended to PCP. * Telephone Encounter - Franck Beebe - 12/06/2024 11:40 AM EDT TC from pt requesting medication refill. Medications needing refill : gabapentin (Neurontin) 800 MG tablet To be sent to: [email or web address] #[id number] - [place], [place] - [address] [facility] documented in this encounter Plan of Treatment Upcoming Encounters Date Type Department Care Team (Late st Contact Info) Description 02/28/2025 9:30 AM EDT Clinical Support [facility] [address] [place] [phone] Iesha Adams, BINDU documented as of this encounter Visit Diagnoses Not on filedocumented in this encounter Care Teams Php Engineer Relationship Specialty Start Date End Date Nela Murillo MD [address] [place] [phone] PCP - General Family Medicine 05/31/18 Jignesh Rucker, RN [address] [place] [address] Registered Nurse Family Medicine 01/02/25 Ayesha Alaniz 01/02/25 documented as of this encounter
--- OUTSIDE RECORDS SUMMARY | 2025-02-13 19:12 | XMS_ITS | Encounter Summary ---
Author Organization [employer] Address [address] [place] [address] 7 [place] [address] Care Team Providers Care Die Sizer Name Role Phone Nela Murillo MD Primary Care Provider + Jignesh Rucker RN Unavailable [phone] Ayesha Alaniz Unavailable Reason for Visit * Reason Onset Date Comments Nurse Triage 12/18/2022 Encounter Details Date Type Department Care Team (Late st Contact Info) Description 12/18/2022 Telephone [facility] [address] [place], [place] [phone] Nela Murillo MD [address] [place] [address] Nurse Triage Social History Tobacco Use Types Packs/Day Years [...] encounter Miscellaneous Notes * Telephone Encounter - Mayelin Lasha - 12/18/2022 10:18 AM EDT Symptoms: Headache, Eye Pain - Not From Injury Outcome: Schedule an urgent appointment (within 4 hours) or talk to a nurse or provider soon Reason: Getting worse, is diagnosed with gamboa palsy The caller accepted this outcome Please contact pt at [phone] documented in this encounter Plan of Treatment Upcoming Encounters Date Type Department Care Team ([facility] st Contact Info) Description 02/28/2025 9:30 AM EDT Clinical Support [facility] [address] [place] [address] Iesha Adams, BINDU documented as of this encounter Visit Diagnoses Not on filedocumented in this encounter Care Teams Die Sizer Relationship Specialty Start Date End Date Nela Murillo MD [address] [place] [address] PCP - General Family Medicine 05/31/18 Jignesh Rucker, RN [address] [place] [address] Registered Nurse Family Medicine 01/02/25 Ayesha Alaniz 01/02/25 documented as of this encounter
--- OUTSIDE RECORDS SUMMARY | 2025-02-13 19:12 | XMS_ITS | Encounter Summary ---
Author Organization [employer] Address [address] [place] [address] 7 [place] [address] Care Team Providers Care [employer] Planners Name Role Phone Nela Murillo MD Primary Care Provider + Jignesh Rucker RN Unavailable [phone] Ayesha Alaniz Unavailable Reason for Visit * Reason Onset Date Comments Med Refill 10/10/2024 Encounter Details Date Type Department Care Team (Late st Contact Info) Description 10/10/2024 Refill [facility] [address] [place], [place] [phone] Nela Murillo MD [address] [place] [address] [phone] Social History Tobacco Use Types Packs/Day Years [...] 02/28/2025 9:30 AM EDT Clinical Support [facility] [address] [place], [place] [phone] Iesha Adams RN documented as of this encounter Visit Diagnoses Not on filedocumented in this encounter Care Teams [employer] Planners Relationship Specialty Start Date End Date Nela Murillo MD [address] [place] [address] PCP - General Family Medicine 05/31/18 Jignesh Rucker, BINDU [address] [place] [phone] Registered Nurse Family Medicine 01/02/25 Ayesha Alaniz 01/02/25 documented as of this encounter
--- OUTSIDE RECORDS SUMMARY | 2025-02-13 19:12 | XMS_ITS | Encounter Summary ---
Author Organization [employer] Address [address] [place] [address] 7 [place] [address] Care Team Providers Care Brake Rider Name Role Phone Nela Murillo MD Primary Care Provider + Jignesh Rucker RN Unavailable [phone] Ayesha Alaniz Unavailable Reason for Visit * Reason Onset Date Comments Med Refill 12/14/2024 Encounter Details Date Type Department Care Team (Late Contact Info) Description 12/14/2024 Refill [facility] [address] [place], [place] [phone] Nela Murillo MD [address] [place] [address] [phone] Anxiety Social History Tobacco Use Types Packs/Day [...] Description 02/28/2025 9:30 AM EDT Clinical Support [facility] [address] [place], [place] [phone] Iesha Adams RN documented as of this encounter Visit Diagnoses Diagnosis Anxiety Anxiety state, unspecified documented in this encounter Care Teams Brake Rider Relationship Specialty Start Date End Date Nela Murillo MD [address] [place] [phone] PCP - General Family Medicine 05/31/18 Jignesh Rucker, BINDU [address] [place] [address] Registered Nurse Family Medicine 01/02/25 Ayesha Alaniz 01/02/25 documented as of this encounter
--- OUTSIDE RECORDS SUMMARY | 2025-02-13 19:12 | XMS_ITS | Encounter Summary ---
Author Organization [employer] Address [address] [place] [address] 7t [place] [address] Care Team Providers Care Upper Cutter Name Role Phone Nela Murillo MD Primary Care Provider + Jigensh Rucker RN Unavailable [phone] Ayesha Alaniz Unavailable Reason for Visit * Reason Onset Date Comments Nurse Triage 08/05/2023 Encounter Details Date Type Department Care Team (Late st Contact Info) Description 08/05/2023 Telephone [facility] [address] [place], [place] [phone] Nela Murillo MD 230 [place] [address] Nurse Triage Social History Tobacco Use Types [...] encounter Miscellaneous Notes * Telephone Encounter - Zuleima Lucero RN - 08/05/2023 3:58 PM EST called pt to triage, spoke to pt. pt states seen ER at [facility] on 07/30 for low back pain and still having some pain. pt states pain low back that radiates into hips and down both legs. pt denies known injury, fevers, numbness, or other associated symptoms. advised home care: rest, fluids, medications, follow ER discharge instructions, ice, heat, and call back if worsening or new concerns. given appt with PCP 08/18 at 12:30 for exam. pt understands and agrees with plan. insurance verified. Protocol Used: Back Pain (Adult) Protocol-Based Disposition: See in Office or Video Visit within 2 Weeks Video visit offer not recorded Positive Triage Question: * Back pain is a chronic symptom (recurrent or ongoing AND lasting > 4 weeks) * All higher-acuity triage questions were negative Care Advice Discussed: * Reassurance and Education - Back Pain * Cold or Heat * Sleep * Activity * Pain Medicines * Reasons To Call Back - Fever occurs - Numbness or weakness occurs, or bowel/bladder problems - Pain begins to shoot into the leg - Pain persists over 2 weeks - Pain becomes worse - You become worse * Telephone Encounter - Gudelia Valverde - 08/05/2023 3:47 PM EST Patient calling to report ED visit on : Date: 07/31/23 Hospital: [facility] hospital Seen for: Back injury Patient advised will forward to team nurse for follow up Severe pain, days off are and Wednesday Please contact pt @ [phone] documented in this encounter Plan of Treatment Upcoming Encounters Date Type Department Care Team (Late st Contact Info) Description 02/28/2025 9:30 AM EDT Clinical Support [facility] [address] [place] [address] Iesha Adams RN documented as of this encounter Visit Diagnoses Not on filedocumented in this encounter Care Teams Upper Cutter Relationship Specialty Start Date End Date Nela Murillo MD 230 [place] [address] PCP - General Family Medicine 05/31/18 Jignesh Rucker, RN [address] [place] [address] [place] [address] Registered Nurse Family Medicine 01/02/25 Ayesha Alaniz 01/02/25 documented as of this encounter
--- OUTSIDE RECORDS SUMMARY | 2025-02-13 19:12 | XMS_ITS | Encounter Summary ---
Author Organization [employer] Address [address] [place] [address] 7t [place] [address] Care Team Providers Care Polish Maker Name Role Phone Nela Murillo MD Primary Care Provider + Jignesh Rucker RN Unavailable [phone] Ayesha Alaniz Unavailable Encounter Details Date Type Department Care Team (Late Contact Info) Description 02/15/2023 Orders Only [facility] [address] [place], [place] [phone] Sheila White LPN Social History Tobacco Use Types Packs/Day [...] Description 02/28/2025 9:30 AM EDT Clinical Support [facility] [address] [place], [place] [phone] Iesha Adams RN documented as of this encounter Visit Diagnoses Not on filedocumented in this encounter Care Teams Polish Maker Relationship Specialty Start Date End Date Nela Murillo MD [address] [place] [address] PCP - General Family Medicine 05/31/18 Jignesh Rucker, RN [address] [place] [address] Registered Nurse Family Medicine 01/02/25 Ayesha Alaniz 01/02/25 documented as of this encounter
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
== END 2025-02-13 16:54 | disposition home or self-care (01) ==
LOC: HO.HHCLNP 16:53
PROVIDERS: Visit Provider Internal Medicine
DX: Z79.899 Other long term (current) drug therapy (principal)
CPT/HCPCS: 36415; 80353

== ENCOUNTER 2025-02-28 16:21 | Outpatient (REF) | payer MEDICAID, SELFPAY ==
--- OUTSIDE RECORDS SUMMARY | 2025-02-28 09:30 | XMS_ITS | Encounter Summary ---
Author Organization [employer] Address [address] [facility] 7t [place] [address] Care Team Providers Care Orthodontist Small Business Owner Name Role Phone Nela Murillo MD Primary Care Provider + Jignesh Rucker RN Unavailable [phone] Ayesha Alaniz Unavailable Reason for Visit * Reason Comments BRICK OFFBEARER RV Encounter Details Date Type Department Care Team (Latest Contact Info) Description 02/28/2025 9:30 AM EDT Clinical Support [facility] [address] [place] [address] Iesha Adams RN Long-term current use of benzodiazepine (Primary Dx) Social History Tobacco Use Types Packs/Day Years Used Date Smoking Tobacco: Every Day Cigarettes Smokeless Tobacco: Never Alcohol Use Standard Drinks/Week Comments Never 0 (1 standard drink = 0.6 oz pur e alcohol) Depression Answer Date Recorded Patient Health Questionnaire-9 Score 02/15/2025 Patient Health Questionnaire-9 Score 21 02/15/2025 Last PHQ-9: Questionnaire Data Not on file 0 02/15/2025 Housing Stability Answer Date Recorded What is [...] off services in your home? No 01/02/2025 Depression Answer Date Recorded Patient Health Questionnaire-2 Score 6 02/15/2025 Internet Access Answer Date Recorded Internet Access [...] Progress Notes * Iesha Adams RN - 02/28/2025 9:30 AM EDT SUBJECTIVE: Maria Del Rosario Salcedo is a 39 y.o. year old female who presents for BRICK OFFBEARER RV Preferred language for medical information: Burmese Maria Del Rosario Salcedo does report adherence to Clonazepam (Klonopin) 1 mg, take 1 tablet every 12 hours PRN, last refilled 02/15/2025. The patient last took Clonazepam (Klonopin) on: 02/28/2025 Medication effective: Yes Sleep habits: sleeps ok Therapist: Yes Received th following message from PCP today and reviewed with patient at BRICK OFFBEARER visit today: UTOX on 02/13/2025 was positive for cocaine, patient has been struggling with substances for few months now. I spoke with Diane Alexis [facility] who did a consult with patient last week. We discussed about the importance of MH support, SA recovery and long-term psychiatry prescriber care. -Diane will reach out to patient to see if she connected with service net (previous MH provider), otherwise she will probably offer in-house service + come to lacrosse coach and other SA services + stay on methadone program with usual provider. Please tell patient to wait for Diane's call (patient has history of no-show to appointments recently scheduled with both care management and behavioral health). -Please reach out to patient regarding recently positive UTOX and told her that I am willing to prescribe monthly Rx Klonopin for the next 2 or 3 months until she is engaged with mental health and follows up with above POC. Otherwise, I will discuss with her a taper down plan after the 3 months. -Please discussed with her the importance of avoiding substance use including other opiates and cocaine, and the commitment to not buy any THC products on the streets. -Please tell her the importance of compliance with appointments and that includes changing to televisit if transportation is an issue (except for BRICK OFFBEARER visit when OV is required). - Patient to continue on tier 1 BRICK OFFBEARER visits for now. I will continue to follow-up with her as scheduled, please remind her the importance of of appointment compliance Pt stated she understood above. She has spoke to Diane/SABRINA already and is scheduled with her 03/01/25 @ 9am. OBJECTIVE: GAS ENGINE MECHANIC checked: 02/28/2025 Pill count completed for Clonazepam (Klonopin), count today is 4 , anticipated count should be 1, this is as expected. Last PCP visit: 10/16/2024 CAROLYNN-7 Total Score: 18 (02/15/2025 2:00 PM) Controlled substance agreement signed: Controlled Substance Agreement 12/20/2024 BRICK OFFBEARER Tier: 1 Current Medications[1] Smoking status: Yes, 4-5 cigarettes daily ETOH use: Denies Illicit substances: Denies Marijuana use: Yes, smokes multiple times daily , Marijuana card: Yes , Marijuana Acquired from: dispensary Pt stated she's no longer using marijuana from the street since her last UTOX Lab Results Component Value Date POCTHC Positive 02/13/2025 POCCOCAINEUR Positive (A) 02/13/2025 POCOPIATEUR Negative 02/13/2025 DOAUR Negative 02/13/2025 POCAMPHETAMI Negative 02/13/2025 POCBENZODIUR Positive 02/13/2025 POCBARBSCRN Negative 02/13/2025 POCMETHADOUR Positive 02/13/2025 POCBUPSCRN Negative 02/13/2025 POCTCAUR Positive 02/13/2025 POCMDMAUR Negative 02/13/2025 POCOXYCODONE Negative 02/13/2025 POCPHENCYCUR Negative 02/13/2025 PROPOXUR Negative 02/13/2025 FENTANYLURIN Negative 02/13/2025 Reviewed UTOX results. Explained I would send out for AFTAB confirmation and would notify her if the results are abnormal. Pt stated she has not used anything and doesn't know why her urine is still testing pos AFTAB. ASSESSMENT: Encounter Diagnosis Name Primary? Long-term current use of benzodiazepine Yes PLAN: Information on acupuncture given: Previously discussed Narcan education provided: Previously discussed Narcan prescription: active Will send message to PCP requesting Clonazepam refill and update on UTOX results from today. Maria Del Rosariora Maria C Salcedo will continue taking medication as prescribed and follow up at the next [facility] visit or sooner if needed. Maria Del Rosariora Maria C Salcedo has verbalized understanding of care plan. Future Appointments Date Time Provider Department Center 02/28/2025 9:30 AM Iesha Adams RN [facility] 03/01/2025 9:00 [facility] 9:00 AM Iesha Adams RN [facility] Iesha Adams RN [1] Current Outpatient Medications: clonazePAM (KlonoPIN) 1 MG tablet, Take 1 tablet (1 mg) by mouth 2 times daily for 14 days. Do not start before February 15, 2025., Disp: 28 tablet, Rfl: 0 cloNIDine [...] Care Team (Late st Contact Info) Description 04/03/2025 9:00 AM EST Clinical Support [facility] [address] [place] [address] Iesha Adams, BINDU Scheduled Orders Name Type Priority Associated Diagnoses Orde r Schedule Drug Monitoring, Cocaine Metabolite, Quantitative, Urine Lab Routine Long-term current use of benzodiazepine Ordered: 02/28/2025 documented as of this encounter Procedures Procedure Name Priority Date/Time Associated Diagnosis Comments POCT BERTO-14 URINE DRUG SCREEN Routine 02/28/2025 9:03 AM EDT Long-term current use of benzodiazepine documented in this encounter Results * (ABNORMAL) POCT BERTO-14 Urine Drug Screen (02/28/2025 9:03 AM EDT) THC Positive Negative Cocaine Screen, [...] obtained by clean catch procedure / Unknown 02/28/2025 9:03 AM EDT Iesha Tellez RN - 02/28/2025 9:03 AM EDT UTOX cup Lot#[id number] Exp. 03/06/26 Internal Pass Control Nela Murillo MD POINT OF CARE TEST ENTER /EDIT ORDERABLES Final Result documented in this encounter Visit Diagnoses Diagnosis Long-term current use of benzodiazepine- Primary documented in this encounter Additional Health Concerns Assessment Noted Time PHQ-9 Depression Total Score: 21 02/15/ 025 2:00 PM EDT documented as of this encounter Care Teams Orthodontist Small Business Owner Relationship Specialty Start Date End Date Nela Murillo MD [address] [place] [address] PCP - General Family Medicine 05/31/18 Jignesh Rucker, RN [address] [place] [address] Registered Nurse Family Medicine 01/02/25 Ayesha Alaniz 01/02/25 documented as of this encounter
--- OUTSIDE RECORDS SUMMARY | 2025-02-28 16:40 | XMS_ITS | Encounter Summary ---
Author Organization [employer] Address [address] [place] [address] 7 [place] [address] Care Team Providers Care Biochemical Development Engineer Name Role Phone Nela Murillo MD Primary Care Provider + Jignesh Rucker RN Unavailable [phone] Ayesha Alaniz Unavailable Reason for Visit * Reason Onset Date Comments Med Refill 12/14/2024 Encounter Details Date Type Department Care Team (Late Contact Info) Description 12/14/2024 Refill [facility] [address] [place] [address] [phone] Nela Murillo MD [address] [place] [address] [phone] Anxiety Social History Tobacco Use Types Packs/Day [...] Department Care Team (Late Contact Info) Description 04/03/2025 9:00 AM EST Clinical Support [facility] [address] [place], [place] [phone] Iesha Adams RN documented as of this encounter Visit Diagnoses Diagnosis Anxiety Anxiety state, unspecified documented in this encounter Care Teams Biochemical Development Engineer Relationship Specialty Start Date End Date Nela Murillo MD [address] [place] [address] PCP - General Family Medicine 05/31/18 Jignesh Rucker, BINDU [address] [place] [address] Registered Nurse Family Medicine 01/02/25 Ayesha Alaniz 01/02/25 documented as of this encounter
--- OUTSIDE RECORDS SUMMARY | 2025-02-28 16:40 | XMS_ITS | Encounter Summary ---
Author Organization [employer] Address [address] [place] [address] 7t [place] [address] Care Team Providers Care Otolaryngology Teacher Name Role Phone Nela Murillo MD Primary Care Provider + Jignesh Rucker RN Unavailable Ayesha Alaniz Unavailable Reason for Visit * Reason Onset Date Comments Med Refill 12/06/2024 Encounter Details Date Type Department Care Team (Late st Contact Info) Description 12/06/2024 Telephone [facility] [address] [place], [place] [phone] Nela Murillo MD [address] [place], [place] [phone] Med Refill Social History Tobacco Use Types [...] 11:45 AM EDT Medication was sent to [id number] on 11/10/24 #30 with 1 refill. * Telephone Encounter - Franck Beebe - 12/06/2024 11:40 AM EDT TC from pt requesting medication refill. Medications needing refill : cloNIDine (Catapres) 0.1 MG tablet To be sent to: [id number] - [place], [place] - [address] [facility] [facility] documented in this encounter Plan of Treatment Upcoming Encounters Date Type Department Care Team (Late st Contact Info) Description 04/03/2025 9:00 AM EST Clinical Support [facility] [address] [place] [phone] Iesha Adams RN documented as of this encounter Visit Diagnoses Not on filedocumented in this encounter Care Teams Otolaryngology Teacher Relationship Specialty Start Date End Date Nela Murillo MD [address] [place] [address] PCP - General Family Medicine 05/31/18 Jignesh Rucker, BINDU [address] [place] [address] Registered Nurse Family Medicine 01/02/25 Ayesha Alaniz 01/02/25 documented as of this encounter
--- OUTSIDE RECORDS SUMMARY | 2025-02-28 16:40 | XMS_ITS | Encounter Summary ---
Author Organization [employer] Address [address] [facility] 7t [place] [address] Care Team Providers Care Marble Ceiling Installer Name Role Phone Nela Murillo MD Primary Care Provider + Jignesh Rucker RN Unavailable [phone] Ayesha Alaniz Unavailable Encounter Details Date Type Department Care Team (Latest Contact Info) Description 02/28/2025 Travel Social History Tobacco Use Types Packs/Day Years Used Date Smoking Tobacco: Every Day Cigarettes Smokeless Tobacco: Never Alcohol Use Standard Drinks/Week Comments Never 0 (1 standard drink = 0.6 oz pur e alcohol) Depression Answer Date Recorded Patient Health Questionnaire-9 Score 21 02/15/2025 Patient Health Questionnaire-9 Score 21 02/15/2025 [...] Description 04/03/2025 9:00 AM EST Clinical Support [facility] [address] [place] [address] Iesha Adams RN documented as of this encounter Visit Diagnoses Not on filedocumented in this encounter Additional Health Concerns Assessment Noted Time PHQ-9 Depression Total Score: 21 025 2:00 PM EDT documented as of this encounter Care Teams Marble Ceiling Installer Relationship Specialty Start Date End Date Nela Murillo MD [address] [place] [address] PCP - General Family Medicine 05/31/18 Jignesh Rucker, BINDU [address] [place] [address] Registered Nurse Family Medicine 01/02/25 Ayesha Alaniz 01/02/25 documented as of this encounter
--- OUTSIDE RECORDS SUMMARY | 2025-02-28 16:40 | XMS_ITS | Encounter Summary ---
Author Organization [employer] Address [address] [place] [address] 7 [place] [address] Care Team Providers Care Biological Technical Officer Name Role Phone Nela Murillo MD Primary Care Provider + Jignesh Rucker RN Unavailable [phone] Ayesha Alaniz Unavailable Encounter Details Date Type Department Care Team (Late Contact Info) Description 02/15/2023 Orders Only [facility] [address] [place], [place] [phone] Sheila White LPN Social History Tobacco Use [...] Description 04/03/2025 9:00 AM EST Clinical Support [facility] [address] [place], [place] [phone] Iesha Adams, BINDU documented as of this encounter Visit Diagnoses Not on filedocumented in this encounter Care Teams Biological Technical Officer Relationship Specialty Start Date End Date Nela Murillo MD 230 [place] [address] PCP - General Family Medicine 05/31/18 Jignesh Rucker, RN [address] [facility] [place] [address] Registered Nurse Family Medicine 01/02/25 Ayesha Alaniz 01/02/25 documented as of this encounter
--- OUTSIDE RECORDS SUMMARY | 2025-02-28 16:40 | XMS_ITS | Encounter Summary ---
Author Organization [employer] Address [address] [facility] 7t [place] [address] Care Team Providers Care Director Of Sports Medicine Name Role Phone Nela Murillo MD Primary Care Provider + Jignesh Rucker RN Unavailable [phone] Ayesha Alaniz Unavailable Encounter Details Date Type Department Care Team (Late st Contact Info) Description 02/27/2025 Results Follow-Up [facility] MEDICINE [address] [place] [address] Nela Murillo MD [address] [place] [address] POCT BERTO-14 Urine Drug Screen, Drug Monitoring, Cocaine Metabolite, Quantitative, Urine Social History Tobacco Use Types Packs/Day Years [...] Telephone Encounter - Iesha Adams RN - 02/28/2025 9:39 AM EDT Pt had SAP BPC DEVELOPER visit today. PCP note reviewed with patient, see SAP BPC DEVELOPER note from today. Patient in agreement. She is scheduled to meet with Isaura Garcia 03/01/25. * Result Encounter Note - Nela Murillo MD - 02/27/2025 4:08 PM EDT UTOX on 02/13/2025 was positive for cocaine, patient has been struggling with substances for few months now. I spoke with Diane Alexis INSUL[facility] TE[facility] who did a consult with patient last week. We discussed about the importance of MH support, SA recovery and long-term psychiatry prescriber care. -Diane will reach out to patient to see if she connected with service net (previous MH provider), otherwise she will probably offer in-house service + come to lean coach and other SA services + stay [...] if transportation is an issue (except for SAP BPC DEVELOPER visit when OV is required). - Patient to continue on tier 1 SAP BPC DEVELOPER visits for now. I will continue to follow-up with her as scheduled, please remind her the importance of of appointment compliance documented in this encounter Plan of Treatment Upcoming Encounters Date Type Department Care Team (Late st Contact Info) Description 04/03/2025 9:00 AM EST Clinical Support [facility] MED[facility]INE [address] [place] [address] Iesha Adams, BINDU documented as of this encounter Visit Diagnoses Not on filedocumented in this encounter Additional Health Concerns Assessment Noted Time PHQ-9 Depression Total Score: 21 025 2:00 PM EDT documented as of this encounter Care Teams Director Of Sports Medicine Relationship Specialty Start Date End Date Nela Murillo MD [address] [place] [address] PCP - General Family Medicine 05/31/18 Jignesh Rucker, RN [address] [place] [address] Registered Nurse Family Medicine 01/02/25 Ayesha Alaniz 01/02/25 documented as of this encounter
--- OUTSIDE RECORDS SUMMARY | 2025-02-28 16:40 | XMS_ITS | Encounter Summary ---
Author Organization [employer] Address [address] [facility] 7t [place] [address] Care Team Providers Care Director Risk Name Role Phone Nela Murillo MD Primary Care Provider + Jignesh Rucker RN Unavailable [phone] Ayesha Alaniz Unavailable Reason for Visit * Reason Onset Date Comments Med Refill 02/28/2025 UTOX Pos AFTAB 02/28/2025 Encounter Details Date Type Department Care Team (Late st Contact Info) Description 02/28/2025 Refill [facility]INE [address] [place] [address] Iesha Adams RN Anxiety Social History Tobacco [...] Encounter - Iesha Adams RN - 02/28/2025 9:08 AM EDT Pt had DATA LEAD RV appointment today UTOX was Pos AFTAB, sent out for confirmation. Pt stated she's no longer using marijuana from the street since her last UTOX. Pt stated she has not used anything and doesn't know why her urine is still testing pos AFTAB. Reviewed PCP message received today with patient: UTOX on 02/13/2025 was positive for cocaine, patient has been struggling with substances for few months now. I spoke with Diane Alexis [facility] who did a consult with patient last week. We discussed about the importance of MH support, SA recovery and long-term psychiatry prescriber care. -Diane will reach out to patient to see if she connected with service net (previous MH provider), otherwise she will probably offer in-house service + come to women's lacrosse coach and other SA services + [...] if transportation is an issue (except for DATA LEAD visit when OV is required). - Patient to continue on tier 1 DATA LEAD visits for now. I will continue to follow-up with her as scheduled, please remind her the importance of of appointment compliance Pt stated she understood above. She has spoke to Diane/ already and is scheduled with her 03/01/25 @ 9am. documented in this encounter Plan of Treatment Upcoming Encounters Date Type Department Care Team (Late st Contact Info) Description 04/03/2025 9:00 AM EST Clinical Support [facility] [address] [place] [address] Iesha Adams, RN documented as of this encounter Visit Diagnoses Diagnosis Anxiety Anxiety state, unspecified documented in this encounter Additional Health Concerns Assessment Noted Time PHQ-9 Depression Total Score: 21 025 2:00 PM EDT documented as of this encounter Care Teams Director Risk Relationship Specialty Start Date End Date Nela Murillo MD [address] [place] [address] PCP - General Family Medicine 05/31/18 iJgnesh Rucker, RN [address] [place] [address] Registered Nurse Family Medicine 01/02/25 Ayesha Alaniz 01/02/25 documented as of this encounter
--- OUTSIDE RECORDS SUMMARY | 2025-02-28 16:40 | XMS_ITS | Encounter Summary ---
Author Organization [employer] Address [address] [place] [address] 7 [place] [address] Care Team Providers Care Lever Tender Name Role Phone Nela Murillo MD Primary Care Provider + Jignesh Rucker RN Unavailable [phone] Ayesha Alaniz Unavailable Reason for Visit * Reason Onset Date Comments Med Refill 12/14/2024 Encounter Details Date Type Department Care Team (Late st Contact Info) Description 12/14/2024 Refill [facility] 230 [place], [place] [phone] Nela Murillo MD [address] [place] [address] Social History Tobacco Use Types Packs/Day Years [...] Description 04/03/2025 9:00 AM EST Clinical Support [facility] [address] [place] [phone] Iesha Adams, BINDU documented as of this encounter Visit Diagnoses Not on filedocumented in this encounter Care Teams Lever Tender Relationship Specialty Start Date End Date Nela Murillo MD [address] [place] [address] PCP - General Family Medicine 05/31/18 Jignesh Rucker, BINDU [address] [place] [address] Registered Nurse Family Medicine 01/02/25 Ayesha Alaniz 01/02/25 documented as of this encounter
--- OUTSIDE RECORDS SUMMARY | 2025-02-28 16:40 | XMS_ITS | Encounter Summary ---
Author Organization [employer] Address [address] [place] [address] 7 [place] [address] Care Team Providers Care Sign Builder Name Role Phone Nela Murillo MD Primary Care Provider + Jignesh Rucker RN Unavailable [phone] Ayesha Alaniz Unavailable Reason for Visit * Reason Onset Date Comments Med Refill 12/06/2024 Encounter Details Date Type Department Care Team (Late st Contact Info) Description 12/06/2024 Telephone [facility]INE 230 [place], [place] [phone] Nela Murillo MD 230 [place], [place] [phone] Med Refill Social History Tobacco Use Types [...] 800 MG tablet To be sent to: [facility][id number] - [place], [place] - [address] [facility] documented in this encounter Plan of Treatment Upcoming Encounters Date Type Department Care Team (Late st Contact Info) Description 04/03/2025 9:00 AM EST Clinical Support [facility] [address] [place] [address] Iesha Adams, BINDU documented as of this encounter Visit Diagnoses Not on filedocumented in this encounter Care Teams Sign Builder Relationship Specialty Start Date End Date Nela Murillo MD [address] [place] [address] PCP - General Family Medicine 05/31/18 Jignesh Rucker, RN [address] [place] [address] Registered Nurse Family Medicine 01/02/25 Ayesha Alaniz 01/02/25 documented as of this encounter
--- OUTSIDE RECORDS SUMMARY | 2025-02-28 16:40 | XMS_ITS | Encounter Summary ---
Author Organization [employer] Address [address] [place] [address] 7 [place] [address] Care Team Providers Care Public Policy Analyst Name Role Phone Nela Murillo MD Primary Care Provider + Jignesh Rucker RN Unavailable [phone] Ayesha Alaniz Unavailable Reason for Visit * Reason Comments Med Refill Encounter Details Date Type Department Care Team (Late Contact Info) Description 03/15/2023 Refill [facility] [address] [place] [address] [phone] Nela Murillo MD [address] [place], [place] [phone] Chronic pansinusitis Social History Tobacco Use Types [...] Description 04/03/2025 9:00 AM EST Clinical Support [facility]INE 230 [place], [place] [phone] Iesha Adams RN documented as of this encounter Visit Diagnoses Diagnosis Chronic pansinusitis Other chronic sinusitis documented in this encounter Care Teams Public Policy Analyst Relationship Specialty Start Date End Date Nela Murillo MD [address] [place] [address] PCP - General Family Medicine 05/31/18 Jignesh Rucker RN [address] [place] [address] Registered Nurse Family Medicine 01/02/25 Ayesha Alaniz 01/02/25 documented as of this encounter
--- OUTSIDE RECORDS SUMMARY | 2025-02-28 16:40 | XMS_ITS ---
Author Organization [employer] Address [address] [place] [address] 7 [place] [address] Care Team Providers Care Sample Cutter Name Role Phone Nela Murillo MD Primary Care Provider + Jignesh Rucker RN Unavailable [phone] Ayesha Alaniz Unavailable [facility] Status:Enrolled (Active) Start date:01/02/2025 Enrollment date:01/02/2025 Enrollment reason:Referred by provider Overview Provider Referral- Patient with history of bipolar disorder, awaiting on mental health referral, multiple issues with DCF, substance abuse, please help her with appointment and medication compliance,assist her on her search for housing Case Team Name Relationship Phone Ayesha Alaniz(Responsible Staff) Continued Care and Services Coordination
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
--- OUTSIDE RECORDS SUMMARY | 2025-02-28 16:40 | XMS_ITS | Encounter Summary ---
Author Organization [employer] Address [address] [facility] 7t [place] [address] Care Team Providers Care Airframe And Powerplant Technician Name Role Phone Nela Murillo MD Primary Care Provider + Jignesh Rucker RN Unavailable [phone] Ayesha Alaniz Unavailable Reason for Visit * Reason Comments Med Refill Encounter Details Date Type Department Care Team (Late st Contact Info) Description 02/26/2025 Refill [facility] [address] [place], [place] [phone] Nela Murillo MD [address] [place], [place] [phone] Social History Tobacco Use Types Packs/Day Years [...] Description 04/03/2025 9:00 AM EST Clinical Support [facility] [address] [place] [address] Iesha Adams RN documented as of this encounter Visit Diagnoses Not on filedocumented in this encounter Additional Health Concerns Assessment Noted Time PHQ-9 Depression Total Score: 21 025 2:00 PM EDT documented as of this encounter Care Teams Airframe And Powerplant Technician Relationship Specialty Start Date End Date Nela Murillo MD [address] [place] [address] PCP - General Family Medicine 05/31/18 Jignesh Rucker, BINDU [address] [place] [address] Registered Nurse Family Medicine 01/02/25 Ayesha Alaniz 01/02/25 documented as of this encounter
--- OUTSIDE RECORDS SUMMARY | 2025-02-28 16:40 | XMS_ITS ---
Author Organization [employer] Address [address] [facility] 7 [place] [address] Care Team Providers Care Veneer Measurer Name Role Phone Nela Murillo MD Primary Care Provider + Jignesh Rucker RN Unavailable [phone] Ayesha Alaniz Unavailable CM Complex Status:Outreach In Progress (Enrolling) Start date:01/02/2025 Enrollment reason:Referred by provider Overview Provider Referral- Patient with history of bipolar disorder, awaiting on mental health referral, multiple issues with DCF, substance abuse, please help her with appointment and medication compliance,assist her on her search for housing Case Team Name Relationship Phone Jignesh Rucker RN(Responsible Staff) Registered Kyler patel [phone] Continued Care and Services Coordination
--- OUTSIDE RECORDS SUMMARY | 2025-02-28 16:40 | XMS_ITS | Encounter Summary ---
Author Organization [employer] Address [address] [place] [address] 7 [place] [address] Care Team Providers Care Air Hole Driller Name Role Phone Nela Murillo MD Primary Care Provider + Jignesh Rucker RN Unavailable [phone] Ayesha Alaniz Unavailable Reason for Visit * Reason Onset Date Comments Med Refill 10/10/2024 Encounter Details Date Type Department Care Team (Late st Contact Info) Description 10/10/2024 Refill [facility] [address] [place] [phone] Nela Murillo MD [address] [place], [place] [phone] Social History Tobacco Use Types Packs/Day Years [...] 9:00 AM EST Clinical Support [facility] [address] [place], [place] [phone] Iesha Adams RN documented as of this encounter Visit Diagnoses Not on filedocumented in this encounter Care Teams Air Hole Driller Relationship Specialty Start Date End Date Nela Murillo MD [address] [place] [address] PCP - General Family Medicine 05/31/18 Jignesh Rucker, BINDU [address] [place] [address] Registered Nurse Family Medicine 01/02/25 Ayesha Alaniz 01/02/25 documented as of this encounter
--- OUTSIDE RECORDS SUMMARY | 2025-02-28 16:41 | XMS_ITS | Encounter Summary ---
Author Organization [employer] Address [address] [place] [address] 7t [place] [address] Care Team Providers Care It Project Coordinator Name Role Phone Nela Murillo MD Primary Care Provider + Jignesh Rucker RN Unavailable [phone] Ayesha Alaniz Unavailable Reason for Visit * Reason Onset Date Comments Nurse Triage 08/05/2023 Encounter Details Date Type Department Care Team (Late st Contact Info) Description 08/05/2023 Telephone [facility] [address] [place], [place] [phone] Nela Murillo MD [address] [place] [address] Nurse Triage Social History Tobacco Use Types [...] Miscellaneous Notes * Telephone Encounter - Zuleima uLcero RN - 08/05/2023 3:58 PM EST called pt to triage, spoke to pt. pt states seen ER at [facility] on 07/30 for low back pain and [...] ED visit on : Date: 07/31/23 Hospital: [facility] hospital Seen for: Back injury Patient advised will forward to team nurse for follow up Severe pain, days off are and Wednesday Please contact pt @ [phone] documented in this encounter Plan of Treatment Upcoming Encounters Date Type Department Care Team (Late st Contact Info) Description 04/03/2025 9:00 AM EST Clinical Support [facility] [address] [place] [address] Iesha Adams RN documented as of this encounter Visit Diagnoses Not on filedocumented in this encounter Care Teams It Project Coordinator Relationship Specialty Start Date End Date Nela Murillo MD [address] [place] [address] PCP - General Family Medicine 05/31/18 Jignesh Rucker, RN [address] [place] [address] [place] [address] Registered Nurse Family Medicine 01/02/25 Ayesha Alaniz 01/02/25 documented as of this encounter
--- OUTSIDE RECORDS SUMMARY | 2025-02-28 16:41 | XMS_ITS | Encounter Summary ---
Author Organization [employer] Address 75 [facility] 7t [place] [address] Care Team Providers Care Interactive Media Director Name Role Phone Nela Murillo MD Primary Care Provider + Jignesh Rucker RN Unavailable [phone] Ayesha Alaniz Unavailable Reason for Visit * Reason Onset Date Comments UTOX confirmation Pos AFTAB 02/19/2025 Encounter Details Date Type Department Care Team (Late st Contact Info) Description 02/19/2025 Telephone [facility] [address] [place] [address] Iesha Adams RN UTOX confirmation Pos ATFAB Social History Tobacco Use Types Packs/Day Years [...] encounter Miscellaneous Notes * Telephone Encounter - Nela Murillo MD - 02/27/2025 5:01 PM EDT See 02/27/2025 addendum to previous note/positive UTOX. * Telephone Encounter - Iesha Adams RN - 02/19/2025 10:13 AM EDT Pt had FILTER CLOTH MAKER R V appt 02/13/25, UTOX was pos AFTAB. Confirmstion returned today Pos AFTAB. 12/28/24 - Pt notified if happens again, PCP will taper off. 12/20/24 - UTOX Pos AFTAB / Conf. Pos AFTAB Please advise. documented in this encounter Plan of Treatment Upcoming Encounters Date Type Department Care Team (Late st Contact Info) Description 04/03/2025 9:00 AM EST Clinical Support [address] [phone] Iesha Adams, RN documented as of this encounter Visit Diagnoses Not on filedocumented in this encounter Additional Health Concerns Assessment Noted Time PHQ-9 Depression Total Score: 21 02/15/ 025 2:00 PM EDT documented as of this encounter Care Teams Interactive Media Director Relationship Specialty Start Date End Date Nela Murillo MD [address] [place] [address] PCP - General Family Medicine 05/31/18 Jignesh Rucker, BINDU [address] [place] [address] Registered Nurse Family Medicine 01/02/25 Ayesha Alaniz 01/02/25 documented as of this encounter
--- OUTSIDE RECORDS SUMMARY | 2025-02-28 16:41 | XMS_ITS | Encounter Summary ---
Author Organization [employer] Address [address] [place] [address] 7t [place] [address] Care Team Providers Care Social Services Counselor Name Role Phone Nela Murillo MD Primary Care Provider + Jignesh Rucker RN Unavailable [phone] Ayesha Alaniz Unavailable Reason for Visit * Reason Onset Date Comments Med Refill 09/11/2024 Encounter Details Date Type Department Care Team (Late st Contact Info) Description 09/11/[address] [facility] [address] [place], [place] [phone] Nela Murillo MD 230 [place], [place] [phone] Med Refill Social History Tobacco Use Types [...] 8:38 AM EDT Medication was sent to [id number] on 08/07/24 with 3 refills. * Telephone Encounter - Vinicio Ash - 09/11/2024 8:29 AM EDT TC from pt requesting medication refill. Medications needing refill : gabapentin (Neurontin) 800 MG tablet To be sent to: [id number] - [place], [place] - [address] [facility] documented in this encounter Plan of Treatment Upcoming Encounters Date Type Department Care Team (Late st Contact Info) Description 04/03/2025 9:00 AM EST Clinical Support [facility] [address] [place] [address] Iesha Adams RN documented as of this encounter Visit Diagnoses Not on filedocumented in this encounter Care Teams Social Services Counselor Relationship Specialty Start Date End Date Nela Murillo MD [address] [place] [address] PCP - General Family Medicine 05/31/18 Jignesh Rucker, RN [address] [place] [phone] Registered Nurse Family Medicine 01/02/25 Ayesha Alaniz 01/02/25 documented as of this encounter
--- OUTSIDE RECORDS SUMMARY | 2025-02-28 16:41 | XMS_ITS | Encounter Summary ---
Author Organization [employer] Address [address] [place] [address] 7 [place] [address] Care Team Providers Care Blackener Name Role Phone Nela Murillo MD Primary Care Provider + Jignesh Rucker RN Unavailable [phone] Ayesha Alaniz Unavailable Encounter Details Date Type Department Care Team (Late Contact Info) Description 12/15/2022 Orders Only [facility] [address] [place] [address] Sarah Cardoza LPN Social History Tobacco Use [...] Description 04/03/2025 9:00 AM EST Clinical Support [facility] [address] [place] [phone] Iesha Adams, RN documented as of this encounter Visit Diagnoses Not on filedocumented in this encounter Care Teams Blackener Relationship Specialty Start Date End Date Nela Murillo MD [address] [place] [phone] PCP - General Family Medicine 05/31/18 Jignesh Rucker, BINDU [address] [facility] [place] [address] Registered Nurse Family Medicine 01/02/25 Ayesha Alaniz 01/02/25 documented as of this encounter
--- OUTSIDE RECORDS SUMMARY | 2025-02-28 16:41 | XMS_ITS | Encounter Summary ---
Author Organization [employer] Address [address] [place] [address] 7t [place] [address] Care Team Providers Care Car Sales Consultant Name Role Phone Nela Murillo MD Primary Care Provider + Jignesh Rucker RN Unavailable [phone] Ayesha Alaniz Unavailable Reason for Visit * Reason Onset Date Comments Appointment Request 08/28/2024 Encounter Details Date Type Department Care Team ([facility] st Contact Info) Description 08/28/2024 Telephone [facility] 230 [place], [place] [phone] Nela Murillo MD [address] [place], [place] [phone] Appointment Request Social History Tobacco Use Types [...] pt requesting to R/s Appt from 08/16/24. Developer Architect advised pt of Availability and advised will send a message. Contact pt at [phone] documented in this encounter Plan of Treatment Upcoming Encounters Date Type Department Care Team (Late st Contact Info) Description 04/03/2025 9:00 AM EST Clinical Support [facility] [address] [place] [address] Iesha Adams, BINDU documented as of this encounter Visit Diagnoses Not on filedocumented in this encounter Care Teams Car Sales Consultant Relationship Specialty Start Date End Date Nela Murillo MD [address] [place] [address] PCP - General Family Medicine 05/31/18 Jignesh Rucker, BINDU [address] [place] [address] Registered Nurse Family Medicine 01/02/25 Ayesha Alaniz 01/02/25 documented as of this encounter
--- OUTSIDE RECORDS SUMMARY | 2025-02-28 16:41 | XMS_ITS | Encounter Summary ---
Author Organization [employer] Address [address] [place] [address] 7 [place] [address] Care Team Providers Care Feed Mill Manager Name Role Phone Nela Murillo MD Primary Care Provider + Jignesh Rucker RN Unavailable [phone] Ayesha Alaniz Unavailable Reason for Visit * Reason Onset Date Comments Nurse Triage 12/18/2022 Encounter Details Date Type Department Care Team (Late st Contact Info) Description 12/18/2022 Telephone [facility] [address] [place], [place] [phone] Nela Murillo MD [address] [place] [address] Nurse Triage Social History Tobacco Use Types [...] accepted this outcome Please contact pt at [phone] documented in this encounter Plan of Treatment Upcoming Encounters Date Type Department Care Team ([facility] st Contact Info) Description 04/03/2025 9:00 AM EST Clinical Support [facility] [address] [place] [address] Iesha Adams, RN documented as of this encounter Visit Diagnoses Not on filedocumented in this encounter Care Teams Feed Mill Manager Relationship Specialty Start Date End Date Nela Murillo MD [address] [place] [address] PCP - General Family Medicine 05/31/18 Jignesh Rucker, RN [address] [place] [address] Registered Nurse Family Medicine 01/02/25 Ayesha Alaniz 01/02/25 documented as of this encounter
--- OUTSIDE RECORDS SUMMARY | 2025-02-28 16:41 | XMS_ITS | Encounter Summary ---
Author Organization [employer] [facility] Address [address] [place] [address] [address] [place] [address] Care Team Providers Care Facing Slitter Name Role Phone Nela Murillo MD Primary Care Provider + Jignesh Rucker RN Unavailable [phone] Ayesha Alaniz Unavailable Encounter Details Date Type Department Care Team (Late Contact Info) Description 12/18/2022 Telephone [facility] [address] [place] [address] [phone] Nela Murillo MD [address] [place] [address] [phone] Social History Tobacco Use Types Packs/Day Years [...] Description 04/03/2025 9:00 AM EST Clinical Support [facility] [address] [place] [address] [phone] Iesha Adams RN documented as of this encounter Visit Diagnoses Not on filedocumented in this encounter Care Teams Facing Slitter Relationship Specialty Start Date End Date Nela Murillo MD [address] [place] [address] PCP - General Family Medicine 05/31/18 Jignesh Rucker, RN [address] [place] [address] Registered Nurse Family Medicine 01/02/25 Ayesha Alaniz 01/02/25 documented as of this encounter
== END 2025-02-28 16:22 | disposition home or self-care (01) ==
LOC: HO.HHCLNP 16:21
PROVIDERS: Visit Provider Internal Medicine
DX: Z79.899 Other long term (current) drug therapy (principal)
CPT/HCPCS: 36415; 80353